=== PATIENT | female | born 1950 | race Caucasian/White ===

== ENCOUNTER → 2018-03-10 09:00 | Outpatient (CLI) | payer MEDICARE, SELFPAY ==
[2018-03-10 10:30] LABS: ALB/GLOB Ratio 0.7 RATIO (0.9-2.4); AST(SGOT) 46 U/L (15-37); Alanine Aminotransfer ALT/SGPT 37 U/L (13-56); Alkaline Phosphatase 62 U/L (45-117); Anion Gap 8 (5-15); BUN 19 mg/dL (7-18); BUN/Creat Ratio 20.7 RATIO (10-20); Calcium,Total 8.9 mg/dL (8.5-10.1); Chloride 106 mmol/L (98-107); Cholesterol 138 mg/dL (200); Creatinine, Serum 0.92 mg/dL (0.55-1.02); EST Glomerular Filtration Rate 64 mL/min (>60); Est Glom Filt Rate - Afr Amer 78 mL/min (>60); Globulin 4.1 g/dL (2.2-4.2); Glucose 110 mg/dL (74-106); High Density Lipoprotein 64 mg/dL; Potassium 4.3 mmol/L (3.5-5.1); Protein, Total 7.1 g/dL (6.4-8.2); Sodium Level 142 mmol/L (136-145); Triglycerides 182 mg/dL; Very Low Density Lipoprotein 36 mg/dL (5-40)
== END ==
PROVIDERS: Family Provider Family Medicine; PCP Family Medicine; Visit Provider Family Medicine
DX: E78.5 Hyperlipidemia, unspecified (principal); I10 Essential (primary) hypertension
CPT/HCPCS: 36415; 80053; 80061

== ENCOUNTER → 2018-03-29 14:42 | Outpatient (CLI) | payer MEDICARE, SELFPAY ==
--- NOTE | 2018-03-29 14:44 | BI_ITS ---
MAMMOGRAPHY - BILATERAL SCREENING REASON FOR EXAM: Female, 68 years old. Routine annual screening examination. PERTINENT HISTORY: Mother with breast cancer. TECHNIQUE: Digital bilateral breast chanda (3D mammographic acquisition) in the CC and MLO projections. 2-D mediolateral oblique (MLO) and craniocaudad (CC) views of both breasts were obtained. CAD: Full Field Digital Mammography with Computer Added Detection was performed. COMPARISON: Comparison is made with prior examination dated January 30, 2017. FINDINGS: Breast Composition: The breasts are almost entirely fatty. There are no dominant masses or suspicious calcifications. No other significant abnormalities are identified. There has been no significant change since the prior study. BI/SCREENING MAMM (CAD), BILAT IMPRESSION: Stable bilateral screening mammogram. Yearly follow-up mammogram recommended. (A) ASSESSMENT CATEGORY: BIRADS Category 1: Negative. A letter regarding these results will be sent to the patient by the facility within 30 days. Approximately 10% of breast cancers are not detected by mammography. A normal mammogram should not delay biopsy of a clinically suspicious abnormality. [id number] Electronically Signed: Bradly Puente MD at 15:45 EDT Tel [phone], Service support ,
== END ==
PROVIDERS: PCP Family Medicine; Visit Provider Family Medicine
DX: Z12.31 Encounter for screening mammogram for malignant neoplasm of breast (principal)
CPT/HCPCS: 77063; 77067

== ENCOUNTER 2018-11-01 14:00 | Outpatient (RCR) | payer MEDICARE, SELFPAY ==
[2018-09-14 13:01] VITALS: BMI 49.6
--- NOTE | 2018-10-11 16:45 | HP.OTEVAL ---
Patient's Visit Information VANI RIZZO is a 68 year old F, referred to Occupational Therapy by Anupam Lugo MD, with a diagnosis of lateral epicondylitis R elbow. Date of Evaluation: 10/10/18 Occupational Therapist: Pita Ortiz - Subjective Subjective: Pt seen for initial occupational therapy evaluation for lateral epicondilitis. Pt states has had pain for about one year R elbow with increased numbness/tingling and pain R hand. Pt also has diagnosis carpal tunnel syndrome R upper limb and PMR. Pt states had a cortisone shot about a week ago R elbow and it has started to help. Pt states has been wearing a cock up splint R wrist at night for sleeping. Pt independent with BADL tasks. Pt independent with simple meal prep tasks, spouse assist with IADLs as needed. Pt is R hand dominent. Reads for hobbies. - Pain R elbow 3 Pain Intensity Range: 1, 8 - Objective Objective/Observation: pain with movement R elbow and R hand, decreased AROM R elbow - ROM Elbow: R -25/85 L 0/115 - Strength Policy Services Representative: R 40#, L 52# Lateral Pinch: R 4#, L 8# Tripod Pinch: R 3#, L 6# Strength Comments: R UE MMT 3+/5 L UE 4-/5 - Edema Elbow: slight R elbow edema - Sensation Sensation Comments: numbness and tingling R hand has had for a long time, states going in for carpel tunnel testing nerve conduction test in December. 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 Goal:: Pt will demo increased R elbow extension by 25' to assist with ability to complete functional living tasks at ease by d/c from OT services. Goal:: Pt will demo no pain greater than 1/10 with movement of R elbow by d/c from OT services. Goal:: Pt will be educated on joint protection/energy conservation techniques of R elbow and wrist with good understanding and demo 100%x Goal:: Pt will be edcuated on R elbow HEP with good understanding and demo 100%x - Rehabilitation General Assessment: Pt demo decreased AROM R elbow with -25 degrees R elbow extension. Pt demo increase pain with movement and at rest with R elbow and decreased strength of R UE. Pt would benefit from direct occupational therapy services to increase R elbow ROM and strength, decrease pain R elbow and educate on joint protection, energy conservation techniques and HEP 1-2x/wk x 4-6 wks. Rehabilitation Potential: Good - Anticipated Interventions Anticipated Interventions: A/AAROM/PROM, Strengthening, Massage, Modalities, Orthoses, Joint Protection/Energy Conservation, ADL Training, Education re assistive Equipment, Education re Diagnosis, Education re Self Massage Techniques, Education re Correct Donning Tech,Care&Wearing Sched Comp Garments, Caregiver Training, Home Program - Visit Plan Frequency: 1-2x /Week Duration: 4-6 Weeks General Plan: decrease pain R elbow, increase strength R UE, increase AROM R elbow, educate on joint protection/energy conservation, educate on HEP TEXT: Thank you for the opportunity to evaluate your patient. For Medicare and Medicare HMO plans, please review the plan of care and approve it. It will need to be FAXED BACK to us at [phone] for Medicare purposes. Please let me know if there are questions or concerns regarding this plan of care. Physician Signature: Date:
--- NOTE | 2018-11-01 15:17 | HP.OTDCSUM ---
HP - OT D/C Summary It has been my pleasure to treat VANI RIZZO under orders from Anupam Lugo MD, for the diagnosis of lateral epicondylitis R elbow for a total of 3 visit(s). Please see the following information for a summary of their discharge status. 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 Goal:: Pt will demo increased R elbow extension by 25' to assist with ability to complete functional living tasks at ease by d/c from OT services. Goal:: Pt will demo no pain greater than 1/10 with movement of R elbow by d/c from OT services. Goal:: Pt will be educated on joint protection/energy conservation techniques of R elbow and wrist with good understanding and demo 100%x Goal:: Pt will be edcuated on R elbow HEP with good understanding and demo 100%x - Plan Plan: d/c OT services as of this date. See d/c for all details. - D/C Information Discharge Comments: Pt has made good progress w/ OT goals. Pt demo decreased pain with R elbow 1-2/10 with movement and rest. Pt has progressed with R elbow extension from -25 to -3. Pt has been edcuated on R elbow HEP and soft tissue mobility techniques to complete at home with good understanding and demo. Pt educated on joint protection and energy conservation techniques. Pt no longer requires skilled OT interventions, d/c OT services. If there are questions or concerns regarding this patient's occupational therapy, please fell free to call me at [phone]. Thank you for the referral of this patient. Sincerely, Pita Ortiz
== END 2018-11-01 19:00 | disposition home or self-care (01) ==
LOC: OT 14:00
PROVIDERS: Family Provider Family Medicine; PCP Family Medicine; Referring Provider Orthopaedic Surgery; Visit Provider Orthopaedic Surgery
DX: M77.11 Lateral epicondylitis, right elbow (principal)
CPT/HCPCS: 97140; 97165; 97166; 97530

== ENCOUNTER → 2018-12-18 07:15 | Outpatient (CLI) | payer MEDICARE, SELFPAY ==
[2018-09-14 13:01] VITALS: BMI 49.6
--- NOTE | 2018-12-18 10:51 | NEURO ---
NCS and/or EMG Patient Report Ordering Doctor: Anupam Lugo DATE OF SERVICE: 12/18/18 This is a right upper extremity sensory and motor nerve conduction study performed on this 68-year-old female with numbness weakness and tingling in the right hand. Patient is healthy otherwise. Right upper extremity nerve conduction study demonstrates prolongation into the severe range of the median motor and sensory distal latency with preservation of the ulnar motor and sensory and radial sensory responses. Eating F-wave latency is also prolonged compared to the ulnar F-wave latency. Impression this is an abnormal nerve conduction study of the right upper extremity consistent with severe carpal tunnel syndrome at the right wrist.
== END ==
PROVIDERS: Family Provider Family Medicine; PCP Family Medicine; Referring Provider Orthopaedic Surgery; Visit Provider Orthopaedic Surgery
DX: G56.01 Carpal tunnel syndrome, right upper limb (principal)
CPT/HCPCS: 95909

== ENCOUNTER 2019-01-25 12:11 | Day surgery (SDC) | payer MEDICARE, SELFPAY ==
[2018-09-14 13:01] VITALS: BMI 49.6
[2019-01-25 12:40] VITALS: BP 163/83; PULSE 84; RESP 17; TEMP 36.4; O2SAT 100; BMI 46.8
[2019-01-25 14:41] VITALS: BP 148/71; BP 163/83; PULSE 88; RESP 16; TEMP 36; O2SAT 92
[2019-01-25 14:45] VITALS: BP 141/66; BP 163/83; PULSE 88; RESP 16; O2SAT 93
[2019-01-25 14:50] VITALS: BP 133/69; BP 163/83; PULSE 85; RESP 16; O2SAT 95
--- NOTE | 2019-01-25 14:52 | PCM.OP.PRO ---
Procedure Report Date of Procedure: 01/25/19 Preoperative diagnosis: Right Carpal tunnel syndrome Postoperative diagnosis: Same Title of operation: Open carpal tunnel release Surgeon: Dr. Anupam Lugo Anesthesia: Local w MAC Special medications: Oral clindamycin Indications for surgery: Patient seen and evaluated in the office. Diagnosed with carpal tunnel syndrome. They have failed adequate nonoperative treatment. Due to persistent symptoms they wish to proceed with carpal tunnel release surgery appropriate informed consent was obtained and signed. Details of procedure: Patient was taken to the OR and transferred to the OR table. Appropriate timeouts were performed. Well-padded tourniquet was applied to the operative upper extremity proximally. Area was prepped with alcohol. Local anesthetic was administered using 9 cc of 1% lidocaine plain. Operative extremity was prepped padded and draped in usual orthopedic sterile fashion for the procedure. Limb was exsanguinated. Tourniquet applied to 250 mmHg. Three centimeter incision was made over the palm. Carefully taken through skin, subcutaneous tissue, down onto the transverse carpal ligament. Transverse carpal ligament was opened at the midportion with a knife. Elevator was carefully placed underneath the transverse carpal ligament in a distal direction. I dissected down onto that with a knife. Elevator was then placed in a proximal direction, again directly underneath the transverse carpal ligament. I dissected down on that with a knife. Scissors were used at the proximal extent placed under direct visualization. This fully released the proximal extent of the transverse carpal ligament. At this point my small finger was placed proximally and distally to assure complete release of the transverse carpal ligament over the median nerve. FPL tendon was noted. No significant abnormalities were noted at the region of the carpal canal. Tourniquet was let down. Bleeding controlled with the Bovie. Wound thoroughly irrigated. No undue bleeding noted. Skin edges were reapproximated with a 4-0 nylon. Sterile bandage was applied. Patient was awoken from the anesthetic. Transferred to the room bed. To recovery room in satisfactory condition. Patient will be discharged home. Ice and elevation recommended. Pain medication as needed. Follow-up in the office next week as scheduled. This note was generated with [employer] dictation software. It may contain incorrect words, spelling, and punctuation that were not noted in checking the note before signing.
[2019-01-25 14:55] VITALS: BP 140/70; BP 163/83; PULSE 85; RESP 16; TEMP 36.3; O2SAT 97
[2019-01-25 15:38] VITALS: BP 163/83
== END 2019-01-25 15:39 | disposition home or self-care (01) ==
LOC: SDC 12:13 → AC 12:14
PROVIDERS: Family Provider Family Medicine; PCP Family Medicine; Referring Provider Orthopaedic Surgery; Visit Provider Orthopaedic Surgery
PROC: (CPT 64721; principal; 2019-01-25 13:45)
DX: G56.01 Carpal tunnel syndrome, right upper limb (principal); E66.9 Obesity, unspecified; Z88.0 Allergy status to penicillin; Z79.891 Long term (current) use of opiate analgesic; M19.90 Unspecified osteoarthritis, unspecified site; I10 Essential (primary) hypertension; E78.00 Pure hypercholesterolemia, unspecified; Z87.891 Personal history of nicotine dependence; Z79.899 Other long term (current) drug therapy; Z85.43 Personal history of malignant neoplasm of ovary
CPT/HCPCS: 64721; J7120; J2405

== ENCOUNTER → 2019-03-12 14:49 | Outpatient (CLI) | payer MEDICARE, SELFPAY ==
[2019-03-12 13:30] VITALS: BMI 46.8
[2019-03-12 16:37] LABS: Erythrocyte Sedimentation Rate 57 mm/hr (0-30)
[2019-03-12 16:52] LABS: ALB/GLOB Ratio 0.7 RATIO (0.9-2.4); AST(SGOT) 25 U/L (15-37); Alanine Aminotransfer ALT/SGPT 30 U/L (13-56); Albumin, Serum 3.2 g/dL (3.2-5.0); Alkaline Phosphatase 83 U/L (45-117); Anion Gap 6 (5-15); BUN 18 mg/dL (7-18); BUN/Creat Ratio 19.9 RATIO (10-20); Calcium,Total 9.2 mg/dL (8.5-10.1); Chloride 107 mmol/L (98-107); Cholesterol 154 mg/dL (200); EST Glomerular Filtration Rate 65 mL/min (>60); Est Glom Filt Rate - Afr Amer 79 mL/min (>60); Globulin 4.3 g/dL (2.2-4.2); Glucose 143 mg/dL (74-106); High Density Lipoprotein 58 mg/dL; Protein, Total 7.5 g/dL (6.4-8.2); Sodium Level 142 mmol/L (136-145); Triglycerides 182 mg/dL; Very Low Density Lipoprotein 36 mg/dL (5-40)
== END ==
PROVIDERS: Family Provider Family Medicine; PCP Family Medicine; Referring Provider Family Medicine; Visit Provider Family Medicine
DX: E78.5 Hyperlipidemia, unspecified (principal); M35.3 Polymyalgia rheumatica
CPT/HCPCS: 36415; 80053; 80061; 85652

== ENCOUNTER → 2019-04-01 14:40 | Outpatient (CLI) | payer MEDICARE, SELFPAY ==
[2019-03-12 13:30] VITALS: BMI 46.8
--- NOTE | 2019-04-01 14:42 | BI_ITS ---
MAMMOGRAPHY - BILATERAL SCREENING REASON FOR EXAM: Female, 69 years old. Routine annual screening examination. PERTINENT HISTORY: Mother with breast cancer. TECHNIQUE: Digital bilateral breast claude (3D mammographic acquisition) in the CC and MLO projections. 2-D mediolateral oblique (MLO) and craniocaudad (CC) views of both breasts were obtained. CAD: Full Field Digital Mammography with Computer Added Detection was performed. COMPARISON: Comparison is made with prior study dated March 29, 2018 and January 30, 2017. FINDINGS: Breast Composition: The breasts are almost entirely fatty. There are no dominant masses or suspicious calcifications. No other significant abnormalities are identified. There has been no significant change since the prior study. BI/SCREEN MAMM (CAD) W/CLAUDE BILAT IMPRESSION: Stable bilateral screening mammogram. Yearly follow-up mammogram recommended. (A) ASSESSMENT CATEGORY: BIRADS Category 1: Negative. A letter regarding these results will be sent to the patient by the facility within 30 days. Approximately 10% of breast cancers are not detected by mammography. A normal mammogram should not delay biopsy of a clinically suspicious abnormality. [id number] Electronically Signed: Bradly Puente, at 8:20 EDT , Service support ,
== END ==
PROVIDERS: Family Provider Family Medicine; PCP Family Medicine; Referring Provider Family Medicine; Visit Provider Family Medicine
DX: Z12.31 Encounter for screening mammogram for malignant neoplasm of breast (principal); Z80.3 Family history of malignant neoplasm of breast
CPT/HCPCS: 77063; 77067

== ENCOUNTER → 2019-06-11 08:45 | Outpatient (CLI) | payer MEDICARE, SELFPAY ==
[2019-04-17 15:03] VITALS: BMI 46.8
[2019-06-11 09:50] LABS: Creatinine, Serum 1.01 mg/dL (0.55-1.02); EST Glomerular Filtration Rate 57 mL/min (>60); Est Glom Filt Rate - Afr Amer 69 mL/min (>60)
== END ==
PROVIDERS: Family Provider Family Medicine; PCP Family Medicine; Referring Provider Orthopaedic Surgery; Visit Provider Orthopaedic Surgery
DX: N28.9 Disorder of kidney and ureter, unspecified (principal)
CPT/HCPCS: 36415; 82565

== ENCOUNTER → 2019-09-10 13:48 | Outpatient (CLI) | payer MEDICARE, SELFPAY ==
[2019-09-10 13:09] VITALS: BMI 46.8
[2019-09-10 15:06] LABS: Erythrocyte Sedimentation Rate 22 mm/hr (0-30)
[2019-09-10 15:19] LABS: ALB/GLOB Ratio 0.8 RATIO (0.9-2.4); AST(SGOT) 26 U/L (15-37); Alanine Aminotransfer ALT/SGPT 37 U/L (13-56); Albumin, Serum 3.4 g/dL (3.2-5.0); Alkaline Phosphatase 78 U/L (45-117); Anion Gap 5 (5-15); BUN 17 mg/dL (7-18); BUN/Creat Ratio 18.7 RATIO (10-20); Calcium,Total 9.8 mg/dL (8.5-10.1); Chloride 103 mmol/L (98-107); Cholesterol 137 mg/dL (200); Creatinine, Serum 0.91 mg/dL (0.55-1.02); EST Glomerular Filtration Rate 65 mL/min (>60); Est Glom Filt Rate - Afr Amer 78 mL/min (>60); Globulin 4.1 g/dL (2.2-4.2); Glucose 148 mg/dL (74-106); High Density Lipoprotein 58 mg/dL; Potassium 4.5 mmol/L (3.5-5.1); Protein, Total 7.5 g/dL (6.4-8.2); Sodium Level 140 mmol/L (136-145); Triglycerides 174 mg/dL; Very Low Density Lipoprotein 35 mg/dL (5-40)
== END ==
PROVIDERS: PCP Family Medicine; Referring Provider Family Medicine; Visit Provider Family Medicine
DX: M35.3 Polymyalgia rheumatica (principal); E78.5 Hyperlipidemia, unspecified
CPT/HCPCS: 36415; 80053; 80061; 85652

== ENCOUNTER → 2020-03-18 14:06 | Outpatient (CLI) | payer MEDICARE, SELFPAY ==
[2020-03-18 13:15] VITALS: BMI 46.8
[2020-03-18 15:42] LABS: ALB/GLOB Ratio 0.9 RATIO (0.9-2.4); AST(SGOT) 26 U/L (15-37); Alanine Aminotransfer ALT/SGPT 31 U/L (13-56); Albumin, Serum 3.6 g/dL (3.2-5.0); Alkaline Phosphatase 69 U/L (45-117); Anion Gap 5 (5-15); BUN 14 mg/dL (7-18); BUN/Creat Ratio 13.6 RATIO (10-20); Calcium,Total 9.6 mg/dL (8.5-10.1); Chloride 104 mmol/L (98-107); Creatinine, Serum 1.03 mg/dL (0.55-1.02); EST Glomerular Filtration Rate 56 mL/min (>60); Est Glom Filt Rate - Afr Amer 68 mL/min (>60); Globulin 3.8 g/dL (2.2-4.2); Glucose 155 mg/dL (74-106); Potassium 4.5 mmol/L (3.5-5.1); Protein, Total 7.4 g/dL (6.4-8.2); Sodium Level 140 mmol/L (136-145)
[2020-03-18 15:44] LABS: Hemoglobin A1c 7.2 % (3.8-5.6)
== END ==
PROVIDERS: PCP Family Medicine; Referring Provider Family Medicine; Visit Provider Family Medicine
DX: M35.3 Polymyalgia rheumatica (principal); R73.9 Hyperglycemia, unspecified
CPT/HCPCS: 36415; 80053; 83036

== ENCOUNTER → 2020-04-02 14:33 | Outpatient (CLI) | payer MEDICARE, SELFPAY ==
[2019-09-10 13:09] VITALS: BMI 46.8
[2020-03-18 13:15] VITALS: BMI 46.8
--- NOTE | 2020-04-02 14:34 | BI_ITS ---
MAMMOGRAPHY - BILATERAL SCREENING REASON FOR EXAM: Female, 70 years old. Routine annual screening examination. PERTINENT HISTORY: Mother with breast cancer. TECHNIQUE: Digital bilateral breast claude (3D mammographic acquisition) in the CC and MLO projections. 2-D mediolateral oblique (MLO) and craniocaudad (CC) views of both breasts were obtained. CAD: Full Field Digital Mammography with Computer Added Detection was performed. COMPARISON: Comparison is made with prior examination dated 04/01/2019 and 03/29/2018. FINDINGS: Breast Composition: The breasts are almost entirely fatty. There are no dominant masses or suspicious calcifications. No other significant abnormalities are identified. There has been no significant change since the prior study. BI/SCREEN MAMM (CAD) W/CLAUDE BILAT IMPRESSION: Stable bilateral screening mammogram. Yearly follow-up mammogram recommended. (A) ASSESSMENT CATEGORY: BIRADS Category 1: Negative. A letter regarding these results will be sent to the patient by the facility within 30 days. Approximately 10% of breast cancers are not detected by mammography. A normal mammogram should not delay biopsy of a clinically suspicious abnormality. [id number] Electronically Signed: Bradly Puente, at 15:41 EDT , Service support ,
== END ==
PROVIDERS: PCP Family Medicine; Referring Provider Family Medicine; Visit Provider Family Medicine
DX: Z12.31 Encounter for screening mammogram for malignant neoplasm of breast (principal)
CPT/HCPCS: 77063; 77067

== ENCOUNTER 2020-04-08 14:30 | Outpatient (RCR) | payer MEDICARE, SELFPAY ==
[2020-03-18 13:15] VITALS: BMI 46.8
== END 2020-04-08 23:59 ==
LOC: DC 14:30
PROVIDERS: PCP Family Medicine; Visit Provider Family Medicine
DX: Z71.3 Dietary counseling and surveillance (principal); E11.9 Type 2 diabetes mellitus without complications
CPT/HCPCS: 97802; G0108

== ENCOUNTER 2020-04-30 14:00 | Outpatient (RCR) | payer MEDICARE, SELFPAY ==
[2020-03-18 13:15] VITALS: BMI 46.8
[2020-04-21 14:59] VITALS: BMI 46.0
== END 2020-05-09 23:59 ==
LOC: DC 14:00
PROVIDERS: PCP Family Medicine; Visit Provider Family Medicine
DX: Z71.3 Dietary counseling and surveillance (principal); E11.9 Type 2 diabetes mellitus without complications
CPT/HCPCS: 97803; G0108

== ENCOUNTER 2020-06-01 13:56 | Outpatient (RCR) | payer MEDICARE, SELFPAY ==
[2020-04-21 14:59] VITALS: BMI 46.0
== END 2020-06-08 23:59 ==
LOC: DC 13:56
PROVIDERS: PCP Family Medicine; Visit Provider Family Medicine
DX: Z71.3 Dietary counseling and surveillance (principal); E11.9 Type 2 diabetes mellitus without complications
CPT/HCPCS: 97803

== ENCOUNTER 2020-09-10 06:44 | Outpatient (RCR) | payer MEDICARE, SELFPAY ==
[2020-06-23 15:21] VITALS: BMI 42.0
[2020-09-10] MEDS: COVID-19 VACC, MRNA(PFIZER)/PF 30 MCG/0.3 ML SYRINGE IM (14:08)
[2020-10-01] MEDS: COVID-19 VACC, MRNA(PFIZER)/PF 30 MCG/0.3 ML SYRINGE IM (13:51)
== END 2020-12-15 23:59 ==
LOC: IMMUN 06:44
PROVIDERS: PCP Family Medicine; Referring Provider Family Medicine; Visit Provider Family Medicine
DX: Z23 Encounter for immunization (principal)
CPT/HCPCS: 0001A; 0002A; 91300

== ENCOUNTER → 2020-12-17 14:56 | Outpatient (CLI) | payer MEDICARE, SELFPAY ==
[2020-12-17 14:02] VITALS: BMI 39.6
[2020-12-17 16:52] LABS: Absolute Lymphocyte Count 1.85 X10^3/uL (0.83-4.51); Absolute Neutrophil Count 5.5 X10^3/uL (2.0-7.7); Basophil# 0.04 X10^3/uL; Basophil% 0.5 % (0-1); Eosinophil# 0.16 X10^3/uL; Eosinophils% 1.9 % (0-5); Hematocrit 46.1 % (37-47); Hemoglobin 14.7 g/dL (12.0-15.0); Lymphocyte # 1.85 X10^3/ul (0.83-4.51); Lymphocyte % 22.4 % (19-41); Mean Corp Hgb Conc 31.9 g/dL (32-36); Mean Corpuscular Hgb 30.6 pg (27.0-32.0); Mean Corpuscular Volume 95.8 fL (81-99); Mean Platelet Vol. 11.6 fl (6.2-12.0); Monocyte# 0.69 X10^3/uL; Monocyte% 8.4 % (0-10); NRBC Flagged by Analyzer 0 % (0-5); Neutrophil % 66.6 % (47-70); Platelet Count 226 K/mm3 (150-450); RBC Distribution Width CV 14.3 % (11.6-14.6); RBC Distribution Width SD 50.2 fl (35.1-43.9); Red Blood Count 4.81 M/mm3 (4.2-5.4); White Blood Count 8.3 K/mm3 (4.4-11.0)
[2020-12-17 17:02] LABS: Anion Gap 6 (5-15); BUN 21 mg/dL (7-18); BUN/Creat Ratio 26.3 RATIO (10-20); Calcium,Total 9.8 mg/dL (8.5-10.1); Chloride 107 mmol/L (98-107); EST Glomerular Filtration Rate 75 mL/min (>60); Est Glom Filt Rate - Afr Amer 91 mL/min (>60); Glucose 104 mg/dL (74-106); Potassium 4.2 mmol/L (3.5-5.1); Sodium Level 142 mmol/L (136-145)
== END ==
PROVIDERS: PCP Family Medicine; Referring Provider Physician Assistant; Visit Provider Physician Assistant
DX: K92.1 Melena (principal); N64.4 Mastodynia
CPT/HCPCS: 36415; 80048; 85025

== ENCOUNTER 2020-12-23 10:22 | Emergency (ER) | payer MEDICARE, SELFPAY ==
[2020-12-17 14:02] VITALS: BMI 39.6
[2020-12-23 10:23] VITALS: BP 164/83; PULSE 76; RESP 16; TEMP 36.1; O2SAT 100; BMI 37.0
[2020-12-23] MEDS: Morphine 4 MG/ML Syringe IM ×2 (10:53→11:57)
--- NOTE | 2020-12-23 11:02 | ED.VIS.LOWEX ---
HPI History of Present Illness Chief Complaint: Lower Extremity Injury Informant: patient Onset/Context/Timing Onset: Yesterday Context: Gradual Onset Timing: Continuous Quality of Pain: Aching and Burning Location: Left knee Current Severity: Severe Maximum Severity: Severe Narrative Narrative: Patient presents with left knee pain that became worse yesterday. Patient states she knows she needs a total knee replacement on her left knee. Patient states yesterday her pain became more severe. Patient took her tramadol yesterday evening with no improvement. Patient did not take any tramadol today. Patient describes her pain as aching and burning. Patient states her pain is worse with ambulation. Patient denies any trauma or injury. Patient denies any paresthesias or weakness. [facility] Medical History (Updated 12/23/20 @ 12:[address] Manpreet Giron, ) Arthritis Back pain Cataracts, bilateral Difficulty balancing Hemorrhoids History of ovarian cancer History of polycystic ovaries Hyperlipemia Hypertension Knee pain Polymyalgia rheumatica Sciatica Seasonal allergies Shoulder pain Home Medications calcium carb and lactate 200 mg-vitamin D3 6.25 mcg (250 unit) tablet 2 tab PO HS 03/06/18 [History Last Taken Unknown] cetirizine 10 mg capsule 10 mg PO DAILY PRN cap 09/10/19 [History Last Taken Unknown] meloxicam 15 mg tablet 15 mg PO DAILY #90 tab 02/24/20 [Rx Last Taken Unknown] losartan 100 mg tablet 100 mg PO DAILY #90 tab 06/23/20 [Rx Last Taken Unknown] lactobacillus combination no.9 4 billion cell capsule 4,000 mmu cells PO DAILY 09/16/20 [History Last Taken Unknown] rosuvastatin 5 mg tablet 5 mg PO DAILY #90 tab 09/16/20 [Rx Last Taken Unknown] prednisone 1 mg tablet 2 mg PO DAILY #180 tab 09/29/20 [Rx Last Taken Unknown] prednisone 2.5 mg tablet 2.5 mg PO BID #100 tab 11/11/20 [Rx Last Taken Unknown] tramadol 50 mg tablet 50 mg PO BID PRN #60 tab 11/30/20 [Rx Last Taken Unknown] nystatin 100,000 unit/gram topical powder 1 applic TOPICAL TID PRN #30 g 12/17/20 [Rx Last Taken Unknown] potassium chloride 10 mEq tablet,extended release 20 meq PO DAILY #90 tab 12/17/20 [Rx Last Taken Unknown] Allergy/AdvReac Type Severity Reaction Status Date / Time lisinopril Allergy Unknown Verified 12/23/20 10:25 Penicillins [PCN] Allergy Unknown Verified 12/23/20 10:25 Family History Father Alcoholism Hypertension Heart disease Mother Hypertension Asthma Breast cancer Cancer Diabetes Brother Hypertension Heart disease Sister Heart disease Hypertension Surgical History History of carpal tunnel release History of carpal tunnel surgery of right wrist History of hysterectomy History of knee replacement History of tonsillectomy Social History Smoking Status: Former smoker Tobacco: How many years used: 10 how long ago did patient quit smokin alcohol intake: never substance use type: does not use what type of physical activity do you participate in: none ROS ROS ED Constitutional Constitutional ED: Denies chills or fever(s) Eyes Eyes: Denies blurry vision or change in vision ENT ENT ED: Denies rhinorrhea or sore throat Cardiovascular Cardiovascular: Denies chest pain or palpitations Respiratory/Chest Respiratory/Chest: Denies cough or dyspnea Gastrointestinal Gastrointestinal: Denies nausea or vomiting Genitourinary Genitourinary ED: Denies dysuria or hematuria Musculoskeletal Musculoskeletal: Denies back pain or neck pain Integumentary Denies abscess or rash Neurologic Neurologic: Denies headache(s) or weakness Allergic/Immunologic Allergic/Immunologic ED: Denies mouth swelling or urticaria EXAM Physical Exam Const Vital Signs: 12/23/20 10:23 Temperature 96.9 F L Temperature Source Temporal Pulse Rate 76 Respiratory Rate 16 Blood Pressure 164/83 H Blood Pressure Mean 110 Pulse Ox 100 Oxygen Delivery Method Room Air Positive well nourished, well developed and obese General Appearance ED: well developed Nutritional Appearance: obese HEENT Reports moist mucous membranes Extremity Extremity Narrative: There is diffuse tenderness over the left knee. There is no effusion. There is no bony crepitance or step-off. There is no edema or ecchymosis. Range of motion was limited to approximately 30 degrees of flexion secondary to pain. There is no laxity appreciated. Varus and valgus stress test were negative. Shonda's test was negative. There is no calf tenderness. There is no tenderness over the tibia or fibula. Neuro oriented x3, CN's II-XII intact bilaterally, moves all extremities and no sensory deficits noted Sensorium / Orientation: alert Motor Exam: strength 5/5 throughout Psych mental status grossly normal MDM MDM MDM Narrative Medical decision making narrative: Patient was given an injection of morphine here. Patient had minimal improvement with this. Patient states she was having difficulty ambulating still. Patient was given a repeat dose of morphine. Patient feeling better after this. Patient wants to go home. Patient was instructed to continue using her tramadol as previously prescribed. Patient was instructed to follow-up with her orthopedic surgeon in 5 to 7 days. Patient understood and was agreeable with the plan. All questions were answered. Discharge Plan Triage Chief Complaint: Lower Extremity Injury ED Provider: Manpreet Giron Dx/Rx/DC Orders Clinical Impression: Degenerative joint disease of knee Instructions: ED Osteoarthritis Prescriptions: No Action calcium carbonat and lactate 200 mg calcium-vitamin D3 250 unit tablet 200 mg calcium -250 unit tablet 2 tab PO HS RF: 0 Zyrtec 10 mg capsule 10 mg PO DAILY PRN (Reason: allergies) RF: 0 Adult 50 Plus Probiotic 4 billion cell capsule 4,000 mmu cells PO DAILY RF: 0 rosuvastatin [Crestor] 5 mg tablet 5 mg PO DAILY Qty: 90 RF: 1 losartan 100 mg tablet 100 mg PO DAILY Qty: 90 RF: 2 tramadol 50 mg tablet 50 mg PO BID PRN (Reason: pain) Qty: 60 RF: 0 nystatin 100,000 unit/gram powder 1 applic topical TID PRN (Reason: rash) Qty: 30 RF: 0 potassium chloride 10 mEq tablet extended release 20 meq PO DAILY Qty: 90 RF: 1 meloxicam 15 mg tablet 15 mg PO DAILY Qty: 90 RF: 1 prednisone 1 mg tablet 2 mg PO DAILY Qty: 180 RF: 1 prednisone 2.5 mg tablet 2.5 mg PO BID Qty: 100 RF: 1 Primary Care Provider: Keith Alvarado Referrals: Keith Alvarado, [Primary Care Provider] - 1-2 Weeks Anupam Lugo MD [STAFF PHYSICIAN] - 5-7 Days Disposition Disposition: Home, self care
== END 2020-12-23 13:08 | disposition home or self-care (01) ==
PROVIDERS: Emergency Provider Emergency Medicine; PCP Family Medicine
DX: M17.12 Unilateral primary osteoarthritis, left knee (principal); E66.9 Obesity, unspecified; E78.5 Hyperlipidemia, unspecified; I10 Essential (primary) hypertension; Z87.891 Personal history of nicotine dependence; Z85.43 Personal history of malignant neoplasm of ovary; Z79.899 Other long term (current) drug therapy
CPT/HCPCS: 96372; 99282

== ENCOUNTER → 2020-12-28 14:17 | Outpatient (CLI) | payer MEDICARE, SELFPAY ==
[2020-12-23 10:23] VITALS: BMI 37.0
--- NOTE | 2020-12-28 15:08 | BI_ITS ---
MAMMOGRAPHY - BILATERAL DIAGNOSTIC REASON FOR EXAM: Female, 70 years old. Annual screening. PERTINENT HISTORY: Mother with breast cancer. TECHNIQUE: Digital examination. Mediolateral oblique (MLO) and craniocaudad (CC) views of both breasts were obtained. CAD: CAD was performed on this study. 04/02/2020, COMPARISON: 04/01/2019. FINDINGS: Breast Composition: The breasts are almost entirely fatty. Stable benign calcifications bilaterally. There are no dominant masses or suspicious calcifications. No other significant abnormalities are identified. BI/DIAG MAMM W/CAD, BILAT IMPRESSION: Stable bilateral diagnostic mammogram. One year follow-up recommended. ASSESSMENT CATEGORY: BIRADS Category 2: Benign. A letter regarding these results will be sent to the patient by the facility within 30 days. FOLLOW UP RECOMMENDATION: Yearly follow up mammogram recommended. (A) Approximately 10% of breast cancers are not detected by mammography. A normal mammogram should not delay biopsy of a clinically suspicious abnormality. Electronically Signed: Darell Cornelius MD at 14:47 EDT , Service support ,
== END ==
PROVIDERS: PCP Family Medicine; Referring Provider Physician Assistant; Visit Provider Physician Assistant
DX: N64.4 Mastodynia (principal)
CPT/HCPCS: 77062; 77066; G0279

== ENCOUNTER → 2021-03-22 15:34 | Outpatient (CLI) | payer MEDICARE, SELFPAY ==
--- NOTE | 2021-03-22 | COLBX_PTH ---
PATIENT: VANI RIZZO LOC: [facility] U#:[id number] AGE/SX: 75/F ROOM: RE03/22/[address]: Dr. Jhony Nguyen MD : 1950 BED: DIS: SPEC #: [id number] RECD: 03/22/21 15:14 STATUS: AMENA JAIMEJudy #: [id number] JANETH: 03/22/21 00:[address]: Jhony Nguyen DEPT: SURGICAL PATHOLOGY RECD BY: Slava Moore ENTERED: 03/23/21 12:05 SP TYPE: COLON BX LA DR: Dr. Keith Alvarado, [facility] Tissues: Sigmoid colon biopsy Procedures: Surgery Specimen Level IV HEADER OPERATION: Colonoscopy PRE-OP DIAGNOSIS: Rectal bleeding; rule out adenoma TISSUE SUBMITTED: Distal sigmoid polyp at 10 cm MICROSCOPIC DIAGNOSIS Distal sigmoid polyp at 10 cm, biopsy: Tubular adenoma. JANET:justa 03/24/2021 MICROSCOPIC DESCRIPTION Slides are reviewed. GROSS DESCRIPTION Received in fixative is one container labeled with the patient's name and designated distal sigmoid polyp. The specimen consists of one irregular fragment of light bhatia soft tissue that measures 0.7 x 0.6 x 0.5 cm. The specimen is sectioned and totally submitted in one cassette. / AM:justa 03/23/2021 TC:1 CPT: 73860
== END ==
PROVIDERS: PCP Family Medicine; Visit Provider Internal Medicine Gastroenterology
DX: K62.5 Hemorrhage of anus and rectum (principal)
CPT/HCPCS: 88305

== ENCOUNTER → 2021-04-15 15:55 | Outpatient (CLI) | payer MEDICARE, SELFPAY ==
--- NOTE | 2021-04-15 15:58 | EKG12_ITS ---
Test Reason : PRE-OP Blood Pressure : / mmHG Vent. Rate : 070 BPM Atrial Rate : 070 BPM P-R Int : 154 ms QRS Dur : 086 ms QT Int : 388 ms P-R-T Axes : 071 -09 030 degrees QTc Int : 419 ms Normal sinus rhythm Normal ECG Confirmed by ROWDY KING, [place] ([id number]), editor in chief newspaper AN CHAIDEZ ([id number]) on 04/19/2021 10:54:30 AM Referred By: Anupam Lugo Confirmed By:NADIA RENO MD
--- NOTE | 2021-04-15 16:20 | RAD_ITS ---
HISTORY: PREOP EXAMINATION/TECHNIQUE: XR Chest 2 Views COMPARISON: None FINDINGS: LINES/DEVICES: None. LUNGS: No overt pulmonary edema. No focal airspace consolidation. Mildly elevated right hemidiaphragm with mild right basilar linear opacities. Small benign granulomatous calcification left lower lung. No pleural effusion. No pneumothorax detected. MEDIASTINUM AND CARDIOVASCULAR STRUCTURES: Heart normal size. Atherosclerotic calcifications along the aorta. BONES AND SOFT TISSUES: Skeletal degenerative changes. RAD/Chest PA and Lateral IMPRESSION: Mild right basilar linear scarring versus atelectasis. Otherwise, no acute pulmonary airspace disease. at 0737 Reported and signed by: Geraldo Knight MD Electronically Signed: Geraldo Knight MD at 7:36 EDT Tel , Service support ,
== END ==
PROVIDERS: PCP Family Medicine; Referring Provider Orthopaedic Surgery; Visit Provider Orthopaedic Surgery
DX: Z01.810 Encounter for preprocedural cardiovascular examination (principal)
CPT/HCPCS: 71046; 93005

== ENCOUNTER → 2021-07-05 15:53 | Outpatient (CLI) | payer MEDICARE, SELFPAY ==
--- NOTE | 2021-07-05 15:55 | VDLE_ITS ---
Reason For Study: PAIN Procedure LEFT This is a venous duplex using B-mode, color GSV is normal. flow and spectral Doppler. CFV is compressible, spontaneous, phasic, Exam performed in department. competent, and demonstrates normal A preliminary report was called and/or faxed augmentation. to RIP TRAN. FV is compressible, spontaneous, phasic, competent and demonstrates normal augmentation. POP V is compressible, spontaneous, phasic, competent and demonstrates normal augmentation. T/P Trunk is compressible. PTV is compressible. LT PerV is compressible. VL/Venous Duplex US, Unilateral Interpretation Summary There is no evidence of left lower extremity deep vein thrombosis. Left great s aphenous vein appears patent and compressible segmentally. Ordering Physician: Patrizia Barajas Referring Physician: OTF KUHN Performed By: Maria De Jesus Cesar, MODESTA, RVT
== END ==
PROVIDERS: PCP Family Medicine; Referring Provider Physician Assistant Surgical; Visit Provider Physician Assistant Surgical
DX: M79.605 Pain in left leg (principal)
CPT/HCPCS: 93971

== ENCOUNTER 2021-09-22 13:33 | Outpatient (CLI) | payer MEDICARE, SELFPAY ==
[2021-09-22 15:36] LABS: ALB/GLOB Ratio 0.9 RATIO (0.9-2.4); AST(SGOT) 16 U/L (15-37); Alanine Aminotransfer ALT/SGPT 22 U/L (13-56); Albumin, Serum 3.6 g/dL (3.2-5.0); Alkaline Phosphatase 93 U/L (45-117); Anion Gap 6 (5-15); BUN 23 mg/dL (7-18); BUN/Creat Ratio 27.1 RATIO (10-20); Calcium,Total 9.6 mg/dL (8.5-10.1); Chloride 108 mmol/L (98-107); Cholesterol 134 mg/dL (200); Creatinine, Serum 0.85 mg/dL (0.55-1.02); EST Glomerular Filtration Rate 70 mL/min (>60); Est Glom Filt Rate - Afr Amer 84 mL/min (>60); Globulin 4.1 g/dL (2.2-4.2); Glucose 92 mg/dL (74-106); High Density Lipoprotein 71 mg/dL; Potassium 4.4 mmol/L (3.5-5.1); Protein, Total 7.7 g/dL (6.4-8.2); Sodium Level 143 mmol/L (136-145); Triglycerides 117 mg/dL; Very Low Density Lipoprotein 23 mg/dL (5-40)
== END 2021-09-22 23:59 | disposition home or self-care (01) ==
LOC: BIMLAB 13:34
PROVIDERS: PCP Family Medicine; Visit Provider Family Medicine
DX: I10 Essential (primary) hypertension (principal)
CPT/HCPCS: 36415; 80053; 80061

== ENCOUNTER → 2022-02-02 | Outpatient (CLI) | payer MEDICARE, SELFPAY ==
[2022-02-02 15:37] LABS: Creatinine, Serum 0.79 mg/dL (0.55-1.02); EST Glomerular Filtration Rate 75 mL/min (>60); Est Glom Filt Rate - Afr Amer 91 mL/min (>60)
== END | disposition home or self-care (01) ==
LOC: BIMLAB 14:25
PROVIDERS: PCP Family Medicine; Referring Provider Orthopaedic Surgery; Visit Provider Orthopaedic Surgery
DX: M77.11 Lateral epicondylitis, right elbow (principal); N28.9 Disorder of kidney and ureter, unspecified
CPT/HCPCS: 36415; 82565

== ENCOUNTER → 2022-02-10 | Outpatient (CLI) | payer MEDICARE, SELFPAY ==
--- NOTE | 2022-02-10 13:29 | BI_ITS ---
MAMMOGRAPHY - BILATERAL SCREENING 3-D TOMOSYNTHESIS REASON FOR EXAM: Female, 72 years old. Routine screening PERTINENT HISTORY: Mother with breast cancer.. TECHNIQUE: 2-D mammograms and 3-D Tomosynthesis of the breast (s) were performed. CAD was performed. COMPARISON: 04/02/2020 FINDINGS: The breast composition is almost entirely fat. Scattered benign calcifications are seen. No dense spiculated masses or suspicious microcalcifications are identified. No architectural distortion is identified. There is no skin thickening or retraction. There has been no significant change since the prior study. BI/SCRN MAMM (CAD)W/CLAUDE BILAT IMPRESSION: No mammographic signs of malignancy. Routine yearly mammograms recommended. ASSESSMENT CATEGORY: BIRADS Category 1: Negative. A letter regarding these results will be sent to the patient by the facility within 30 days. FOLLOW UP RECOMMENDATION: Yearly follow up mammogram recommended. (A) Approximately 10% of breast cancers are not detected by mammography. A normal mammogram should not delay biopsy of a clinically suspicious abnormality. Electronically Signed: Luis Ruiz MD at 12:47 EDT ,
== END | disposition home or self-care (01) ==
LOC: OPBI 13:28
PROVIDERS: PCP Family Medicine; Referring Provider Physician Assistant; Visit Provider Physician Assistant
DX: Z12.31 Encounter for screening mammogram for malignant neoplasm of breast (principal)
CPT/HCPCS: 77063; 77067

== ENCOUNTER → 2022-03-01 | Outpatient (CLI) | payer MEDICARE, SELFPAY ==
[2022-03-01 14:03] LABS: Bacteria 0 SEEN /hpf (None Seen); Mucous, Urine 0 SEEN /hpf (<or=2+); Red Blood Cells-Urine 0 SEEN /hpf (0-5); Squamous Epithelial Cells - UA 0 SEEN /hpf (5-10); White Blood Cells 0 SEEN /hpf (0-5)
[2022-03-01 14:26] LABS: Absolute Lymphocyte Count 1.93 X10^3/uL (0.83-4.51); Absolute Neutrophil Count 5.6 X10^3/uL (2.0-7.7); Basophil# 0.05 X10^3/uL; Basophil% 0.6 % (0-1); Eosinophil# 0.14 X10^3/uL; Eosinophils% 1.6 % (0-5); Hematocrit 45.1 % (37-47); Lymphocyte # 1.93 X10^3/ul (0.83-4.51); Lymphocyte % 22.4 % (19-41); Mean Corp Hgb Conc 33.3 g/dL (32-36); Mean Corpuscular Hgb 31.8 pg (27.0-32.0); Mean Corpuscular Volume 95.8 fL (81-99); Mean Platelet Vol. 10.1 fl (6.2-12.0); Monocyte# 0.86 X10^3/uL; NRBC Flagged by Analyzer 0 % (0-5); Neutrophil # 5.63 X10^3/uL (2.7-7.7); Neutrophil % 65.3 % (47-70); Platelet Count 194 K/mm3 (150-450); RBC Distribution Width CV 13.4 % (11.6-14.6); RBC Distribution Width SD 47.8 fl (35.1-43.9); Red Blood Count 4.71 M/mm3 (4.2-5.4); White Blood Count 8.6 K/mm3 (4.4-11.0)
[2022-03-01 14:57] LABS: ALB/GLOB Ratio 0.7 RATIO (0.9-2.4); AST(SGOT) 14 U/L (15-37); Alanine Aminotransfer ALT/SGPT 20 U/L (13-56); Albumin, Serum 3.3 g/dL (3.2-5.0); Alkaline Phosphatase 98 U/L (45-117); Amylase 57 U/L (25-115); Anion Gap 4 (5-15); BUN 20 mg/dL (7-18); BUN/Creat Ratio 22.8 RATIO (10-20); Calcium,Total 9.7 mg/dL (8.5-10.1); Chloride 107 mmol/L (98-107); Creatinine, Serum 0.88 mg/dL (0.55-1.02); EST Glomerular Filtration Rate 67 mL/min (>60); Est Glom Filt Rate - Afr Amer 81 mL/min (>60); Globulin 4.5 g/dL (2.2-4.2); Glucose 92 mg/dL (74-106); Lipase 142 U/L (73-393); Potassium 4.4 mmol/L (3.5-5.1); Protein, Total 7.8 g/dL (6.4-8.2); Sodium Level 140 mmol/L (136-145)
[2022-03-01 16:56] LABS: Color, Urine Yellow (Yellow); Glucose, Dipstick Normal (Normal); Ketone-Dipstick Negative (Negative); Leukocyte Esterase-Dipstick Negative /ul (Negative); Nitrite-Dipstick Negative (Negative); Occult Blood-Urine Negative /ul (Negative); Protein-Dipstick 15 mg/dl (Negative); Urine Bilirubin Dipstick Negative (Negative); Urine Clarity Clear (Clear); Urine Urobilinogen Normal (Normal)
== END | disposition home or self-care (01) ==
LOC: BIMLAB 14:02
PROVIDERS: PCP Family Medicine; Referring Provider Physician Assistant; Visit Provider Physician Assistant
DX: R10.12 Left upper quadrant pain (principal); J30.2 Other seasonal allergic rhinitis
CPT/HCPCS: 36415; 80053; 81001; 82150; 83690; 85025; 87086; 87088

== ENCOUNTER → 2022-03-16 | Outpatient (CLI) | payer MEDICARE, SELFPAY ==
--- NOTE | 2022-03-16 13:42 | CT_ITS ---
STUDY: CT ABDOMEN WITH CONTRAST REASON FOR EXAM: Female, 72 years old. LUQ abdominal pain RADIATION DOSAGE (If Supplied By Facility): CTDIvol = ( 16.12 ) mGy, DLP = ( 836.94 ) mGycm TECHNIQUE: Transaxial images were obtained post I.V. administration of Oral and amp; IV Readi-CAT and amp; 100mL Isovue-370, and with oral contrast. Sagittal and coronal images were reconstructed. Individualized dose optimization techniques were used for this CT. COMPARISON: None. FINDINGS: The visualized lung bases are unremarkable. The visualized portions of the heart are within normal limits. Normal liver. Normal gallbladder and extrahepatic biliary system. There are multiple benign calcified granulomata of the spleen. Normal pancreas. Normal bilateral adrenal glands. No obstructive uropathy, there are bilateral simple parapelvic cysts Normal visualized stomach. Normal small intestine. Retained stool in the colon with scattered diverticula but no CT evidence of acute diverticulitis. Sigmoid colon in particular shows extensive diverticulosis and an underlying lesion cannot be excluded. The appendix is visualized and appears normal. Appendix seen on coronal axial images 70-79 Normal abdominal aorta. Normal inferior vena cava. Normal retroperitoneum. There is a small umbilical hernia containing fat. There are diffuse degenerative changes of the visualized lumbar spine, and pelvis. CT/Abdomen WITH IV Contrast IMPRESSION: No suspicious solid organomegaly, simple parapelvic renal cysts, no specific follow-up needed Colonic diverticulosis without CT evidence of acute diverticulitis. Extensive diverticular disease in the sigmoid colon and underlying lesion cannot be excluded. Appendix visualized Fat-containing periumbilical hernia Degenerative bony changes Electronically Signed: Luis Ruiz MD at 14:44 EDT ,
== END | disposition home or self-care (01) ==
LOC: CT 13:27
PROVIDERS: PCP Family Medicine; Referring Provider Physician Assistant; Visit Provider Physician Assistant
DX: R10.12 Left upper quadrant pain (principal)
CPT/HCPCS: 74160; Q9967; A4216

== ENCOUNTER 2022-04-11 08:58 | Day surgery (SDC) | payer MEDICARE, SELFPAY ==
--- NOTE | 2022-04-11 09:19 | HP.PCM_ITS ---
History and Physical Date of Admission: 04/11/22 Date of Service:? 04/07/22 MR#: [id number] Acct: [id number] Name:VANI WALLACE Rep #: [id number] : 1950 ? ? Provider: Dr. Soila Nelson MD Age/Sex:? 72/F ? ? Location: [facility] [place] Status: Signed Intake Vital Signs ? 04/07/2214:30 BP 144/81 H D Blood Pressure Location Lt popliteal Position Sitting Respiration 17 Pulse 70 Pulse Source Monitor Temp 97.2 F L Temp Source Temporal Pulse Oximetry (%) 100 Oxygen Delivery Method room air Intake Visit Reasons:?LUQ / EPIGASTRIC PAIN Chief Complaint: LUQ/epigastric pain Media Director Required: No Is patient in pain?: Yes Allergies lisinopril Allergy (Verified 04/08/22 09:28) UnknownPenicillins [PCN] Allergy (Verified 04/08/22 09:28) Unknown Medications calcium carb and lactate 200 mg-vitamin D3 6.25 mcg (250 unit) tablet 2 tab PO HS 03/06/18 [History Confirmed 04/08/22] cetirizine 10 mg capsule (Zyrtec) 10 mg PO DAILY PRN allergies 09/10/19 [History Confirmed 04/08/22] lactobacillus combination no.9 4 billion cell capsule (Adult 50 Plus Probiotic) 4,000 mmu cells PO DAILY 09/16/20 [History Confirmed 04/08/22] losartan 100 mg tablet 100 mg PO DAILY #90 tabs 05/14/21 [Rx Confirmed 04/08/22] rosuvastatin 5 mg tablet (Crestor) 5 mg PO DAILY #90 tabs 05/14/21 [Rx Confirmed 04/08/22] prednisone 2.5 mg tablet 2.5 mg PO BID #100 tabs 03/01/22 [Rx Confirmed 04/08/22] omeprazole 20 mg capsule,delayed release 20 mg PO DAILY #90 caps 03/02/22 [Rx Confirmed 04/08/22] potassium chloride 20 mEq tablet,extended release 20 meq PO DAILY #90 tabs 03/18/22 [Rx Confirmed 04/08/22] sucralfate 1 gram tablet (Carafate) 1 g PO QACHS #112 tabs 03/23/22 [Rx Confirmed 04/08/22] tramadol 50 mg tablet 50 mg PO BID PRN pain #60 tabs 03/29/22 [Rx Confirmed 04/08/22] rvovbazj-raw-sihuh3 250 mg-dha 90 mg-epa 160 ox-xadj-jpyg-zeax capsule (Ocuvite Adult 50 Plus) 1 cap PO DAILY 04/07/22 [History Confirmed 04/08/22] acetaminophen 650 mg tablet,extended release (Tylenol Arthritis Pain) 1,300 mg PO DAILY 04/08/22 [History Confirmed 04/08/22] meloxicam 15 mg tablet 15 mg PO FR 04/08/22 [History Confirmed 04/08/22] prednisone 1 mg tablet 2 mg PO LUNCH 04/08/22 [History Confirmed 04/08/22] PFSH Medical History?(Updated 04/09/22 @ 08:[address] Soila Nelson MD) Ambulates with cane Arthritis Arthritis Back pain Back pain Cancer Cataracts, bilateral Chronic cough Diabetes Difficulty balancing Former smoker Gastric reflux Hemorrhoids High cholesterol History of diverticulitis History of edema History of ovarian cancer History of polycystic ovaries History of steroid therapy Hyperlipemia Hypertension Hypertension Knee pain Polymyalgia rheumatica Sciatica Seasonal allergies Shoulder pain Wears glasses Surgical History?(Updated 04/08/22 @ 09:41 by Heather Luu) History of carpal tunnel release History of carpal tunnel surgery of right wrist History of hysterectomy History of knee replacement History of tonsillectomy History of total knee replacement Hx of colonoscopy Family History?(Updated 04/07/22 @ 14:30 by Betty Melgoza) Father Alcoholism Hypertension Heart disease AsthmaMother Hypertension Asthma Breast cancer Cancer DiabetesBrother Hypertension Heart diseaseSister Heart disease Hypertension Social History? Smoking Status:? Former smoker Tobacco: How many years used:? 10 how long ago did patient quit smoking:? 1968 alcohol intake:? never substance use type:? does not use what type of physical activity do you participate in:? none HPI HPI HPI: 72 y/o F presents to office due to epigastric and LUQ pain for EGD.? Pt has never had a EGD.? Pt states pain is? 0/10 now but if she presses on it, it will be 5/10.? Pt denies the pain waking her up at night.? Pain can occasionally be sharp.? Pt was just started on Omeprazole 20 mg about 2 weeks ago and carafate 1 week ago by PCP.? Pt states the carafate maybe helping a little, she isn't sure if the omeprazole is or not.? Pt is on prednisone- about 6mg over the course of the day- due to [place].? Pt has also noticed a lump above her umb. ROS General General: No weight change, appetite, fatigue, colon cancer, breast cancer or weakness HEENT HEENT: Yes eye surgery; No difficulty swallowing, eye injury, swollen glands or hoarseness Endo Endocrine: Yes diabetes mellitus; No thyroid disease, thyroid cancer, Hair loss, heat intolerance or cold intolerance Skin Skin: No rash or changing moles Breast Breast: No left breast lump, right breast lump, nipple discharge, breast pain, abnormal mammogram, abnormal US or breast enlargement Musc Musculoskeletal: Yes back problems and arthritis; No rheumatoid arthritis, gout or joint pain Cardio Cardiovascular: Yes high blood pressure; No murmur, pacemaker, heart disease, atrial fibrillation, heart attack, heart stent, palpitations, shortness of breat with exertion or chest pain Psych Psychiatric: No depression, anxiety or hearing voices Resp Respiratory: No shortness of breath, No sleep apnea, No cough, No COPD, No asthma, No emphysema and No wheezing Gastro Gastrointestinal: Yes abdominal pain, No nausea or vomiting, No diarrhea, No constipation, No blood in stool, No acid reflux, Yes hemorrhoids, No ulcers, No gallbladder problem and No black,tarry stools Michel Hematologic: No blood thinners, No blood disorders, No bleeding, No anemia and No blood clots Neuro Neurologic: No system reviewed and no additional complaints, except as documented, No as per HPI, No abnormal gait, No abnormal hearing, No abnormal movements, No abnormal speech, No behavioral changes, No burning sensations, No confusion, No convulsions, No disequilibrium, No dizziness, No localized weakness, No frequent falls, No headache(s), No lack of coordination, No loss of vision, No memory loss, No numbness, No other visual disturbances, No radicular pain, No restless legs, No sensory deficit, No syncope, No tingling, No tremor(s), No weakness and No other Exam Const General: cooperative, healthy appearing and no acute distress [facility] Head: normal to inspection Resp Effort & Inspection: normal respiratory effort Cardio Rate: regular rate GI Inspection: non-distended Palpation: soft, no guarding, hernia (poss. incisional near umb- incarc with abd fat per CT) and tender in the epigastrum and in the LUQ Skin General: no rashes or lesions noted Neuro General: patient oriented x3 Extrem General: no clubbing, cyanosis or edema Psych Affect: normal affect Assessment and Plan Assessment and Plan (1) Left upper quadrant abdominal pain: ?Status:?Acute (2) Epigastric abdominal pain: ?Status:?Acute (3) Incisional hernia, incarcerated: ?Status:?Acute ?Comment: abd fat per CT Plan Reviewed pt previous CT abd personally not acute changes to account for her luq/epigastric abd pain. I have discussed the above with the patient. I have offered the patient esophagogastroduodenoscopy for evaluation. I have explained the risks/benefits of the procedure and described the procedure.? I have discussed the risks with the patient, including but not limited to:? infection, bleeding, perforation of the GI tract requiring emergency surgery, inability to complete the procedure, injury to any internal organs, complications of anesthesia, etc. - the patient understands and agrees to proceed. I have answered all the patient's questions to the patient's satisfaction and the patient has no further questions. Coding Level of Care Code Off vis,new,level 4 Diagnoses Left upper quadrant abdominal pain? R10.12 Epigastric abdominal pain? R10.13 Incisional hernia, incarcerated? K43.0 04/09/22 0840 <Electronically signed by Soila Nelson MD> Date Soila Nelson MD
[2022-04-11 09:27] VITALS: BP 173/74; PULSE 67; RESP 16; TEMP 36; O2SAT 97; BMI 40.6
[2022-04-11] MEDS: Lactated Ringers 1,000 ML 15 ML IV (09:35)
[2022-04-11 10:01] LABS: Bedside Glucose 82 mg/dL (74-106)
--- NOTE | 2022-04-11 10:30 | IMM_PTH ---
PATIENT: VANI RIZZO LOC: [facility] U#:[id number] AGE/SX: 72/F ROOM: RE04/11/[address]: Dr. Soila Nelson MD : 1950 BED: DIS: 04/11/2022 SPEC #: [id number] RECD: 04/11/22 13:54 STATUS: AMENA REQ #: [id number] JANETH: 04/11/22 10:[address]: Soila Nelson DEPT: IMMUNOHISTOCHEMISTRY RECD BY: Linda Sorenson ENTERED: 04/11/22 13:54 SP TYPE: IMMUNO OTHR DR: Dr. Keith Alvarado, Tissues: Stomach, NOS Procedures: H Pylori (initial) PHYSICIAN & INSTITUTION [place] [address] SPECIMEN INFORMATION: Tissue Source: Antrum biopsy Clinical Info: Left upper quadrant abdominal pain, epigastric abdominal pain, incisional hernia Specimen Number: [id number] CPT code: 52674 METHODOLOGY: Deparaffinized sections of prefer/formalin-fixed tissue or PAP/DQ stained slides are incubated with monoclonal/polyclonal antibodies/oligonucleotide probes. Localization is made via biotin free immunoperoxidase method. Appropriate controls are performed and reacted as expected. Results on target cell population are indicated in the following table: RESULTS: ANTIBODY / CLONE RESULT H Pylori (polyclonal) negative These tests were developed and their performance characteristics determined by [facility]. They may not have been cleared or approved by the U.S. Food and Drug Administration. The FDA has determined that such clearance or approval is not necessary. The above immunohistochemical/dualISH markers are ordered and reviewed by the Pathologist. INTERPRETATION: Antrum, biopsy: Negative for Helicobacter pylori organisms. JANET:justa 04/12/2022
--- NOTE | 2022-04-11 10:30 | EGD_PTH ---
PATIENT: VANI RIZZO LOC: [facility] U#:[id number] AGE/SX: 72/F ROOM: RE04/11/[address]: Dr. Soila Nelson MD : 1950 BED: DIS: 04/11/2022 SPEC #: [id number] RECD: 04/11/22 13:30 STATUS: AMENA CARSON #: [id number] JANETH: 04/11/22 10:[address]: Soila Nelson DEPT: SURGICAL PATHOLOGY RECD BY: Melissa Law ENTERED: 04/11/22 13:31 SP TYPE: EGD BIOPSY OT DR: Dr. Keith Alvarado, DO Tissues: Gastric mucous membrane Procedures: Surgery Specimen Level IV HEADER OPERATION: EGD ([facility] [place]), biopsy PRE-OP DIAGNOSIS: Left upper quadrant abdominal pain, epigastric abdominal pain, incisional hernia TISSUE SUBMITTED: Antrum biopsy for histo and H. pylori MICROSCOPIC DIAGNOSIS Antrum, biopsy: Mild gastritis. See microscopic description and comment. JANET:justa 04/12/2022 COMMENT The results of immunohistochemistry for Helicobacter pylori will be reported separately ([id number]). MICROSCOPIC DESCRIPTION Slides are reviewed. The specimen shows fragments of gastric mucosa with chronic inflammatory cell infiltrates in the lamina propria consisting of lymphocytes and plasma cells, consistent with mild chronic gastritis. GROSS DESCRIPTION Received in fixative is one container labeled with the patient's name and designated antrum biopsy. The specimen consists of one irregular fragment of light bhatia soft tissue that measures 0.4 x 0.4 x 0.1 cm. The specimen is totally submitted in one cassette. / JANET:justa 04/11/2022 TC:3 CPT: 13528
[2022-04-11 10:57] VITALS: BP 127/58; BP 172/74; PULSE 76; RESP 16; TEMP 36.3; O2SAT 95
--- NOTE | 2022-04-11 10:58 | OP.EGD_ITS ---
Patient Name: Pam Flynn Procedure Date: 04/11/2022 10:35 AM Date of : 1950 Age: 72 Procedure: Upper GI endoscopy Indications: Epigastric abdominal pain, Abdominal pain in the left upper quadrant Providers: Soila Nelson MD Medicines: Monitored Anesthesia Care Patient Profile: This is a 72 year old female. Complications: No immediate complications. Procedure: Pre-Anesthesia Assessment: - Prior to the procedure, a History and Physical was performed, and patient medications and allergies were reviewed. The patient's tolerance of previous anesthesia was also reviewed. The risks and benefits of the procedure and the sedation options and risks were discussed with the patient. All questions were answered, and informed consent was obtained. Prior Anticoagulants: The patient has taken no previous anticoagulant or antiplatelet agents. ASA Grade Assessment: Per anesthesia. After reviewing the risks and benefits, the patient was deemed in satisfactory condition to undergo the procedure. After obtaining informed consent, the endoscope was passed under direct vision. Throughout the procedure, the patient's blood pressure, pulse, and oxygen saturations were monitored continuously. The gastroscope was introduced through the mouth, and advanced to the second part of duodenum. The upper GI endoscopy was accomplished without difficulty. The patient tolerated the procedure well. Scope In: 10:46:36 AM Scope Out: 10:52:00 AM Total Procedure Duration Time 0 hours 5 minutes 24 seconds Findings: The Z-line was variable. Mildly erythematous mucosa without bleeding was found in the gastric antrum. Biopsies were taken with a cold forceps for histology. Biopsies were taken with a cold forceps for Helicobacter pylori cultures. The examined duodenum was normal. The cardia and gastric fundus were normal on retroflexion. Bilious fluid was found in the gastric antrum. Impression: - Z-line variable. - Erythematous mucosa in the antrum. Biopsied. - Normal examined duodenum. - Bilious gastric fluid. Recommendation: - Await pathology results. - Discharge patient to home. - Use Prilosec (omeprazole) 40 mg PO daily. - Continue present medications. Procedure Code(s): --- Professional --- 84459, Esophagogastroduodenoscopy, flexible, transoral; with biopsy, single or multiple Diagnosis Code(s): --- Professional --- K22.8, Other specified diseases of esophagus K31.89, Other diseases of stomach and duodenum R10.13, Epigastric pain R10.12, Left upper quadrant pain CPT copyright 2017 [employer]. All rights reserved. The codes documented in this report are preliminary and upon head of digital advertising & integration review may be revised to meet current compliance requirements. MD Soila Desir MD 04/11/2022 10:58:09 AM This report has been signed electronically. Number of Addenda: 0 Note Initiated On: 04/11/2022 10:35 AM
--- NOTE | 2022-04-11 10:59 | OP.CCLET_ITS ---
04/11/2022 Keith Alvarado Re : Upper GI endoscopy procedure for Pam Zieglerr Dear Dr. Alvarado This procedure was performed on Monday, April 11, 2022. My impressions and recommendations are as follows: Impressions : - Z-line variable. - Erythematous mucosa in the antrum. Biopsied. - Normal examined duodenum. - Bilious gastric fluid. Recommendations : - Await pathology results. - Discharge patient to home. - Use Prilosec (omeprazole) 40 mg PO daily. - Continue present medications. My findings are described in the full procedure note, which is enclosed. If I can be of further assistance, please feel free to contact me at Doctor phone number(s): , Work: . Sincerely, MD Soila Desir MD 04/11/2022 10:58:09 AM This report has been signed electronically.
[2022-04-11 11:00] VITALS: BP 124/60; BP 172/74; PULSE 65; RESP 16; O2SAT 100
[2022-04-11 11:05] VITALS: BP 120/57; BP 172/74; PULSE 67; RESP 16; O2SAT 100
[2022-04-11 11:10] VITALS: BP 121/65; BP 172/74; PULSE 65; RESP 16; O2SAT 100
[2022-04-11 11:15] VITALS: BP 133/68; BP 172/74; PULSE 66; RESP 16; TEMP 36.1; O2SAT 100
== END 2022-04-11 11:56 | disposition home or self-care (01) ==
LOC: EN 08:59 → AC 09:01
PROVIDERS: PCP Family Medicine; Referring Provider Family Medicine; Visit Provider Surgery
PROC: 0DJ08ZZ Inspection of Upper Intestinal Tract, Via Natural or Artificial Opening Endoscopic (ICD-10-PCS; CPT 43235; principal; 2022-04-11 10:25)
DX: K31.89 Other diseases of stomach and duodenum (principal); K22.89 Other specified disease of esophagus; K29.50 Unspecified chronic gastritis without bleeding; I10 Essential (primary) hypertension; K21.9 Gastro-esophageal reflux disease without esophagitis; E78.00 Pure hypercholesterolemia, unspecified; Z87.891 Personal history of nicotine dependence; Z79.899 Other long term (current) drug therapy
CPT/HCPCS: 43239; 82962; 88305; 88342; J7120; J2405

== ENCOUNTER → 2023-03-29 | Outpatient (CLI) | payer MEDICARE, SELFPAY ==
[2023-03-29 18:07] LABS: ALB/GLOB Ratio 0.7 RATIO (0.9-2.4); AST(SGOT) 15 U/L (15-37); Alanine Aminotransfer ALT/SGPT 20 U/L (13-56); Albumin, Serum 3.3 g/dL (3.2-5.0); Alkaline Phosphatase 80 U/L (45-117); Anion Gap 2 (5-15); BUN 16 mg/dL (7-18); BUN/Creat Ratio 16.8 RATIO (10-20); Calcium,Total 9.4 mg/dL (8.5-10.1); Chloride 108 mmol/L (98-107); Cholesterol 134 mg/dL (200); Creatinine, Serum 0.95 mg/dL (0.55-1.02); EST Glomerular Filtration Rate 61 mL/min (>60); Est Glom Filt Rate - Afr Amer 74 mL/min (>60); Globulin 4.6 g/dL (2.2-4.2); Glucose 98 mg/dL (74-106); High Density Lipoprotein 70 mg/dL; Potassium 4.2 mmol/L (3.5-5.1); Protein, Total 7.9 g/dL (6.4-8.2); Sodium Level 139 mmol/L (136-145); Triglycerides 112 mg/dL; Very Low Density Lipoprotein 22 mg/dL (5-40)
== END | disposition home or self-care (01) ==
PROVIDERS: PCP Family Medicine; Visit Provider Family Medicine
DX: E66.01 Morbid (severe) obesity due to excess calories (principal)
CPT/HCPCS: 36415; 80053; 80061

== ENCOUNTER → 2023-04-28 | Outpatient (CLI) | payer MEDICARE, SELFPAY ==
--- NOTE | 2023-04-28 13:12 | BI_ITS ---
MAMMOGRAPHY - BILATERAL SCREENING REASON FOR EXAM: Female, 73 years old. Routine annual screening examination. PERTINENT HISTORY: Mother with breast cancer. TECHNIQUE: Digital bilateral breast claude (3D mammographic acquisition) in the CC and MLO projections. 2-D mediolateral oblique (MLO) and craniocaudad (CC) views of both breasts were obtained. CAD: Full Field Digital Mammography with Computer Added Detection was performed. COMPARISON: Comparison is made with prior study February 10, 2022 and December 28, 2020. FINDINGS: Breast Composition: The breasts are almost entirely fatty. There are no dominant masses or suspicious calcifications. Stable small benign-appearing bilateral axillary lymph nodes. No other significant abnormalities are identified. There has been no significant change since the prior study. BI/SCRN MAMM (CAD)W/CLAUDE BILAT IMPRESSION: Stable bilateral screening mammogram. Yearly follow-up mammogram recommended. (A) ASSESSMENT CATEGORY: BIRADS Category 2: Benign. A letter regarding these results will be sent to the patient by the facility within 30 days. Approximately 10% of breast cancers are not detected by mammography. A normal mammogram should not delay biopsy of a clinically suspicious abnormality. [id number] Electronically Signed: Bradly Puente MD at 14:30 EDT ,
== END | disposition home or self-care (01) ==
LOC: OPBI 13:11
PROVIDERS: PCP Family Medicine; Referring Provider Family Medicine; Visit Provider Family Medicine
DX: Z12.31 Encounter for screening mammogram for malignant neoplasm of breast (principal)
CPT/HCPCS: 77063; 77067

== ENCOUNTER 2023-10-28 13:37 | Emergency (ER) | payer MEDICARE, SELFPAY ==
[2023-10-28 13:39] VITALS: BP 149/82; PULSE 87; RESP 22; TEMP 36.3; O2SAT 99; BMI 40.0
--- NOTE | 2023-10-28 13:53 | CT_ITS ---
We are attempting to reach an attending provider to discuss findings. An addendum with communication details will be sent when the communication is complete. STUDY: CT Abdomen And Pelvis W/ Contrast Injection 10/28/2023 3:08 PM REASON FOR EXAM: Female, 73 years old. Abdominal pain lower abd pain w. diverticulitis hx Individualized dose optimization techniques were used for this CT. COMPARISON: None. TECHNIQUE: CT Abdomen And Pelvis W/ Contrast Injection IV 100mL Isovue-370 FINDINGS: The visualized portions of the heart are within normal limits. Normal liver. Normal gallbladder and extrahepatic biliary system. There are multiple benign calcified granulomata of the spleen. Normal pancreas. Normal bilateral adrenal glands.Non obstructive 2 mm right renal parenchymal stones. Right renal peripelvic cyst. Left renal peripelvic cyst. Normal visualized stomach. Normal small intestine. There is diverticulosis, with thickening of the colon wall, and pericolonic inflammation changes consistent with acute diverticulitis. No free air visualized. However, there is a pelvic abscess measuring 72 x 41 mm. Tubular component of the abscess extends almost to the anterior abdominal wall measuring 77 x 32 mm. The appendix is visualized and appears normal. Rectal diverticulitis. There are calcifications of the abdominal aorta. This is consistent for atherosclerotic disease. There is NO abdominal aortic aneurysm. Vascular workup can be obtained based on clinical correlation. Normal inferior vena cava. Subcentimeter mesenteric lymph nodes. Normal urinary bladder. There is absence of the uterus consistent with a prior hysterectomy. Large umbilical hernia. There are diffuse degenerative changes of the visualized lumbar spine. Scoliosis of the lumbar spine. There is bilateral neural foraminal stenosis at L4-5 and L5-S1. CT/Abdomen/Pelvis W IV Cont ONLY IMPRESSION: (NOT LISTED IN ORDER OF SIGNIFICANCE) Acute rectal sigmoid diverticulitis with formation of a pelvic abscess. Other findings as above. Electronically Signed: Vito Cuenca MD at 15:13 EDT ,
--- NOTE | 2023-10-28 13:54 | EDS_ITS ---
HPI HPI - GI History of Present Illness Chief Complaint: Complaint Detail of Chief Complaint: Lower abdominal pain. Informant: patient Abdominal Pain/Flank Pain Onset: Weeks Context: Gradual Onset Timing: Continuous Quality: Cramping Location: RLQ and LLQ Current Severity: Mild Maximum Severity: Mild Worsened by: Nothing Relieved by: Nothing Nausea/Vomiting/Emesis GI Symptom: Negative for Nausea or Vomiting Diarrhea/Melena/Hematochezia GI Symptom: Negative for Diarrhea, Melena or Hematochezia Associated Symptoms Associated Symptoms: Negative for Dysuria, Frequency, Hematuria or Urgency Narrative Narrative: 73-year-old female history of diabetes, prior diverticulitis and prior hysterectomy. Complaining of lower abdominal pain for about 2 weeks. She thinks she might have diverticulitis again. Denies vomiting or diarrhea. No fever. Denies discolored, cloudy or bloody urine. Says she has more discomfort after she urinates. Besides her hysterectomy no other prior abdominal surgeries. Prior similar symptoms: Yes Recent Illness/Hospitalization: No PFSH PFSH Medical History Ambulates with cane Arthritis Arthritis Back pain Back pain Cancer Cataracts, bilateral Chronic cough Diabetes Difficulty balancing Former smoker Gastric reflux Hemorrhoids High cholesterol History of diverticulitis History of edema History of ovarian cancer History of polycystic ovaries History of steroid therapy Hyperlipemia Hypertension Hypertension Knee pain Polymyalgia rheumatica Sciatica Seasonal allergies Shoulder pain Wears glasses Home Medications calcium carb and lactate 200 mg-vitamin D3 6.25 mcg (250 unit) tablet 2 tab PO HS 03/06/18 [History Last Taken Unknown] cetirizine 10 mg capsule (Zyrtec) 10 mg PO DAILY PRN allergies 09/10/19 [History Last Taken Unknown] lactobacillus combination no.9 4 billion cell capsule (Adult 50 Plus Probiotic) 4,000 mmu cells PO DAILY 09/16/20 [History Last Taken Unknown] ixkkanrl-spn- 250 mg-dha 90 mg-epa 160 ve-bknp-necq-zeax capsule (Ocuvite Adult 50 Plus) 1 cap PO DAILY 04/07/22 [History Last Taken Unknown] acetaminophen 650 mg tablet,extended release (Tylenol Arthritis Pain) 1,300 mg PO DAILY 04/08/22 [History Last Taken 04/11/22] omeprazole 20 mg capsule,delayed release 20 mg PO DAILY #90 caps 05/03/22 [Rx Last Taken Unknown] coffee extract 100 mg-phosphatidyl serine 100 mg capsule (Neuriva Original) cap PO 03/29/23 [History Last Taken Unknown] rosuvastatin 5 mg tablet (Crestor) 5 mg PO DAILY #90 tabs 04/18/23 [Rx Last Taken Unknown] losartan 100 mg tablet 100 mg PO DAILY #90 tabs 05/23/23 [Rx Last Taken Unknown] celecoxib 200 mg capsule (Celebrex) 200 mg PO DAILY #90 caps 09/01/23 [Rx Last Taken Unknown] potassium chloride 20 mEq tablet,extended release 20 meq PO DAILY #90 tabs 09/01/23 [Rx Last Taken Unknown] prednisone 1 mg tablet 2 mg (2 x 1 mg) PO LUNCH #180 tabs 09/20/23 [Rx Last Taken Unknown] prednisone 2.5 mg tablet 2.5 mg PO BID #180 tabs 09/21/23 [Rx Last Taken Unknown] tramadol 50 mg tablet 50 mg PO BID PRN pain #60 tabs 10/04/23 [Rx Last Taken Unknown] Allergy/AdvReac Type Severity Reaction Status Date / Time Penicillins [PCN] Allergy Swelling Verified 10/28/23 13:39 lisinopril AdvReac Other Verified 10/28/23 13:39 Family History Father Alcoholism Hypertension Heart disease Asthma Mother Hypertension Asthma Breast cancer Cancer Diabetes Brother Hypertension Heart disease Sister Heart disease Hypertension Surgical History History of carpal tunnel release History of carpal tunnel surgery of right wrist History of hysterectomy History of knee replacement History of tonsillectomy History of total knee replacement Hx of colonoscopy Social History Smoking Status: Former smoker Tobacco: How many years used: 10 how long ago did patient quit smokin alcohol intake: never substance use type: does not use what type of physical activity do you participate in: none ROS ROS ED ROS Narrative Lower abdominal pain. Denies vomiting or diarrhea. No fever. Review of Systems ROS Unobtainable: Denies due to encephalopathy Constitutional Constitutional ED: Denies chills or fever(s) ENT ENT ED: Denies ear pain, rhinorrhea or sore throat Cardiovascular Cardiovascular: Denies chest pain or palpitations Respiratory/Chest Respiratory/Chest: Denies cough or dyspnea Gastrointestinal Gastrointestinal: Reports abdominal pain; Denies constipation, diarrhea, melena, nausea or vomiting Genitourinary Genitourinary ED: Denies dysuria or hematuria Musculoskeletal Musculoskeletal: Denies arthralgias Integumentary Denies abscess Psychiatric Psychiatric: Denies anxiety Endocrine Endocrinology: Denies polydipsia Hematologic/Lymphatic Hematologic/Lymphatic: Denies easy bleeding Allergic/Immunologic Allergic/Immunologic ED: Denies mouth swelling, tongue swelling or urticaria EXAM Physical Exam Narrative Exam Narrative: 73-year-old female no acute distress vital signs stable afebrile. HEENT exam unremarkable. Lungs clear. Heart regular rhythm no murmur. Abdomen soft, nondistended normal bowel sounds no peritoneal signs. She does have tenderness on both lower quadrants and suprapubic. No hernia or mass. No pulsatile mass. No obvious signs of trauma. Both upper quadrants are unremarkable. No specific McBurney's point tenderness or Matthews sign. No distention. No obstruction. Moving all 4 extremities. Normal strength. Back nontender. Neurologically she is awake and alert no focal motor deficits. Const Vital Signs: 10/28/23 13:39 Temperature 97.4 F L Temperature Source Temporal Pulse Rate 87 Respiratory Rate 22 H Blood Pressure 149/82 H Blood Pressure Mean 104 Pulse Ox 99 Positive well nourished and well developed; Negative for cachectic, contractures or unkempt General Appearance ED: well developed and NAD; Negative for unkempt, cachectic, contractures or pallor Nutritional Appearance: Negative for cachectic HEENT Reports moist mucous membranes; Denies dry mucous membranes normocephalic and atraumatic; Negative for trauma or tenderness Mouth ED: No dry mucous membranes Mouth: No dry mucous membranes Eyes PERRL and EOMs intact bilaterally General Eye ED: Negative for pale conjunctiva or scleral icterus Neck no lymphadenopathy, supple and no JVD General: Negative for tenderness Carotids: Negative for other Lymph Lymphatic: Negative for other Resp normal respiratory effort and clear to auscultation bilaterally Effort and Inspection: Negative for respiratory distress Auscultation: Negative for rales, rhonchi or wheezes Cardio regular rate, regular rhythm, S1 normal heart sound, S2 normal heart sound and no murmurs Rate: Negative for bradycardia or tachycardic Rhythm: Negative for abnormal rhythm GI non-distended and no masses; Negative for non-tender Inspection: Negative for abdominal distention Auscultation: normoactive bowel sounds Palpation: soft and tender; Negative for guarding, hernia, mass, pulsatile mass or rebound tenderness present Back/Spine no CVA tenderness General Back: Negative for CVA tenderness Cervical Spine: Negative for cervical spine tenderness Thoracic Spine / Upper Back: Negative for thoracic spinal tenderness Lumbar Spine / Lower Back: Negative for lumbar spinal tenderness Coccyx: Negative for other Extremity full ROM General Extremety ED: Negative for edema or tenderness General Extremity: Negative for edema Neuro CN's II-XII intact bilaterally and moves all extremities Sensorium / Orientation: alert, oriented to person, oriented to place and oriented to time; Negative for orientation impaired, confused, lethargic or stuporous Motor Exam: strength 5/5 throughout Psych mental status grossly normal and thought process normal Appearance: Negative for unkempt Attitude: No agitated Mood & Affect: Negative for depressed, anxious or tearful Skin no wounds General Skin Exam: Negative for jaundice or pallor Lesions: no lesions Rashes: no rashes Trauma: Negative for abrasion Nails: Negative for discolored MDM MDM MDM Narrative Medical decision making narrative: 73-year-old female with bilateral lower quadrant and suprapubic abdominal discomfort for about 2 weeks. Differential would include UTI versus diverticulitis versus other etiology. She currently does not want anything for pain or nausea. CAT scan and labs are pending. Repeat exam patient is doing well at 3:45 PM. She and I discussed all of her test results specifically the CAT scan with diverticulitis with pelvic abscess. I also discussed this with general surgery on-call who felt this should have interventional radiology place a drain. I specifically spoke to the patient about that. She strongly does not want to be transferred. She understands we do not have interventional radiology until at least Monday and we may not even have it then. She does not want to be transferred. She understands the risks and benefits. I spoke to the hospitalist and she will be admitted. She will be started on IV Zosyn. History & Record Review Discussion w/independent historian: Patient and Family Additional record(s) reviewed:: Prior inpatient record, Prior outpatient record, Prior ED visit and Prior labs Lab Data Attestation: I reviewed the patient's lab results. Lab results narrative: CBC shows no elevated white count of 16.4. H&H of 13.9 and 43. Platelets 361. Chemistries gap 7. BUN 23 creatinine 1.1. Glucose 143. UA is negative. No white or red cells. No nitrates. CAT scan abdomen pelvis shows sigmoid diverticulitis with pelvic abscess. Labs: Laboratory Results - last 24 hr 10/28/23 10/28/23 14:00 15:12 WBC 16.4 H RBC 4.66 Hgb 13.9 Hct 43.2 MCV 92.7 MCH 29.8 MCHC 32.2 RDW Std Deviation 47.4 H RDW Coeff of Augie 14.0 Plt Count 361 MPV 9.3 Immature Gran % (Auto) 0.400 Neut % (Auto) 78.9 H Lymph % (Auto) 11.7 L [place] % (Auto) 7.7 Eos % (Auto) 0.9 Baso % (Auto) 0.4 Absolute Neuts (auto) 12.9 H Absolute Lymphs (auto) 1.92 Nucleated RBC % 0 Sodium 136 Potassium 4.2 Chloride 104 Carbon Dioxide 25.0 Anion Gap 7 BUN 23 H Creatinine 1.01 Estim Creat Clear Calc 55.54 Est GFR (MDRD) Af Amer 69 Est GFR (MDRD) Non-Af 57 L BUN/Creatinine Ratio 22.8 H Glucose 143 H Calcium 9.3 Urine Color Yellow Urine Clarity Clear Urine pH 7.0 Ur Specific [place] 1.005 Urine Protein 30 H Urine Glucose (UA) Normal Urine Ketones Negative Urine Occult Blood 25 H Urine Nitrite Negative Urine Bilirubin Negative Urine Urobilinogen Normal Ur Leukocyte Esterase 25 H Urine RBC 0-5 SEEN Urine WBC 0-5 SEEN Ur Squamous Epith Cells 0-5 SEEN Urine Bacteria 1+ Urine Mucus 0 SEEN Radiography Diagnostic Testing: Clinical Impression(s) from Imaging Studies Abdomen/Pelvis CT 10/28/23 13:53 IMPRESSION: (NOT LISTED IN ORDER OF SIGNIFICANCE) Acute rectal sigmoid diverticulitis with formation of a pelvic abscess. Other findings as above. Electronically Signed: Vito Cuenca MD at 15:13 EDT , ADDENDUM: 10/28/23 1532 IMPRESSION: (NOT LISTED IN ORDER OF SIGNIFICANCE) Acute rectal sigmoid diverticulitis with formation of a pelvic abscess. Other findings as above. N.B. : The above Results were Read Back by Vito Cuenca MD to Keyon Gonzalez MD, and understanding confirmed on 10/28/2023 15:25:07 (ET). Electronically Signed: Vito Cuenca MD at 15:13 EDT Reading Location ID and State: [facility] / [place] , Service support , Discharge Plan Dx/Rx/DC Orders Clinical Impression: Diverticulitis of intestine with abscess, History of diabetes mellitus, A bdominal pain Disposition Disposition: Acute Care [facility]
[2023-10-28 14:13] LABS: Absolute Lymphocyte Count 1.92 X10^3/uL (0.83-4.51); Absolute Neutrophil Count 12.9 X10^3/uL (2.0-7.7); Basophil# 0.07 X10^3/uL; Basophil% 0.4 % (0-1); Eosinophil# 0.15 X10^3/uL; Eosinophils% 0.9 % (0-5); Hematocrit 43.2 % (37-47); Hemoglobin 13.9 g/dL (12.0-15.0); Lymphocyte # 1.92 X10^3/ul (0.83-4.51); Lymphocyte % 11.7 % (19-41); Mean Corp Hgb Conc 32.2 g/dL (32-36); Mean Corpuscular Hgb 29.8 pg (27.0-32.0); Mean Corpuscular Volume 92.7 fL (81-99); Mean Platelet Vol. 9.3 fl (6.2-12.0); Monocyte# 1.27 X10^3/uL; Monocyte% 7.7 % (0-10); NRBC Flagged by Analyzer 0 % (0-5); Neutrophil # 12.93 X10^3/uL (2.7-7.7); Neutrophil % 78.9 % (47-70); Platelet Count 361 K/mm3 (150-450); RBC Distribution Width SD 47.4 fl (35.1-43.9); Red Blood Count 4.66 M/mm3 (4.2-5.4); White Blood Count 16.4 K/mm3 (4.4-11.0)
[2023-10-28 14:30] LABS: Anion Gap 7 (5-15); BUN 23 mg/dL (7-18); BUN/Creat Ratio 22.8 RATIO (10-20); Calcium,Total 9.3 mg/dL (8.5-10.1); Chloride 104 mmol/L (98-107); Creatinine, Serum 1.01 mg/dL (0.55-1.02); EST Glomerular Filtration Rate 57 mL/min (>60); Est Glom Filt Rate - Afr Amer 69 mL/min (>60); Estimated Creatinine Clearance 55.54 ml/min; Glucose 143 mg/dL (74-106); Potassium 4.2 mmol/L (3.5-5.1); Sodium Level 136 mmol/L (136-145)
[2023-10-28 15:23] LABS: Mucous, Urine 0 SEEN /hpf (<or=2+)
[2023-10-28 15:35] LABS: Color, Urine Yellow (Yellow); Glucose, Dipstick Normal (Normal); Ketone-Dipstick Negative (Negative); Leukocyte Esterase-Dipstick 25 /ul (Negative); Nitrite-Dipstick Negative (Negative); Occult Blood-Urine 25 /ul (Negative); Protein-Dipstick 30 mg/dl (Negative); Specific Gravity, Urine 1.005 (1.002-1.030); Urine Bilirubin Dipstick Negative (Negative); Urine Clarity Clear (Clear); Urine Urobilinogen Normal (Normal)
[2023-10-28 15:36] LABS: Bacteria 1+ /hpf (None Seen); Red Blood Cells-Urine 0-5 SEEN /hpf (0-5); Squamous Epithelial Cells - UA 0-5 SEEN /hpf (5-10); White Blood Cells 0-5 SEEN /hpf (0-5)
[2023-10-28 15:37] VITALS: BP 134/78; PULSE 78; RESP 16; O2SAT 98
--- NOTE | 2023-10-28 15:56 | NURSING ---
HOSPITALIST FOR DR ASH
[2023-10-28 16:00] VITALS: BP 134/78; PULSE 78; RESP 16; TEMP 36.4; O2SAT 99
--- NOTE | 2023-10-28 16:03 | NURSING ---
MED SURG TONEY DIVERTICULITIS WITH ABSCESS, DM HX
--- NOTE | 2023-10-28 16:08 | PCM.HP.STD ---
HPI - General General Date of Service: 10/28/23 Chief Complaint: Left lower quadrant abdominal pain HPI Narrative Patient transferred to tertiary care facility for further management by interventional radiology/surgery for the pelvic abscess. She was not admitted at [facility]. [facility] Medical History Ambulates with cane Arthritis Arthritis Back pain Back pain Cancer Cataracts, bilateral Chronic cough Diabetes Difficulty balancing Former smoker Gastric reflux Hemorrhoids High cholesterol History of diverticulitis History of edema History of ovarian cancer History of polycystic ovaries History of steroid therapy Hyperlipemia Hypertension Hypertension Knee pain Polymyalgia rheumatica Sciatica Seasonal allergies Shoulder pain Wears glasses Home Medications cetirizine 10 mg capsule (Zyrtec) 10 mg PO DAILY PRN allergies 09/10/19 [History Last Taken 10/28/23] lactobacillus combination no.9 4 billion cell capsule (Adult 50 Plus Probiotic) 4,000 mmu cells PO DAILY 09/16/20 [History Last Taken 10/28/23] hbetsmpx-ocr- 250 mg-dha 90 mg-epa 160 ai-ibja-nlhx-zeax capsule (Ocuvite Adult 50 Plus) 1 cap PO DAILY 04/07/22 [History Last Taken 10/28/23] acetaminophen 650 mg tablet,extended release (Tylenol Arthritis Pain) 1,300 mg PO DAILY 04/08/22 [History Last Taken 10/27/23] omeprazole 20 mg capsule,delayed release 20 mg PO DAILY #90 caps 05/03/22 [Rx Last Taken 10/28/23] coffee extract 100 mg-phosphatidyl serine 100 mg capsule (Neuriva Original) 1 cap PO DAILY LEG NERVE PAIN 03/29/23 [History Last Taken 10/28/23] losartan 100 mg tablet 100 mg PO DAILY #90 tabs 05/23/23 [Rx Last Taken 10/28/23] celecoxib 200 mg capsule (Celebrex) 200 mg PO DAILY #90 caps 09/01/23 [Rx Last Taken 10/28/23] potassium chloride 20 mEq tablet,extended release 20 meq PO DAILY #90 tabs 09/01/23 [Rx Last Taken 10/28/23] prednisone 2.5 mg tablet 2.5 mg PO BID #180 tabs 09/21/23 [Rx Last Taken 10/28/23] tramadol 50 mg tablet 50 mg PO BID PRN pain #60 tabs 10/04/23 [Rx Last Taken Unknown] cholecalciferol (vitamin D3) 50 mcg (2,000 unit) capsule (Vitamin D3) 50 mcg PO DAILY 10/28/23 [History Last Taken 10/28/23] omega-3 fatty acids 1,000 mg capsule 1,000 mg PO DAILY 10/28/23 [History Last Taken 10/28/23] prednisone 1 mg tablet 2 mg PO LUNCH 10/28/23 [History Last Taken 10/27/23] rosuvastatin 5 mg tablet (Crestor) 5 mg PO QHS 10/28/23 [History Last Taken 10/27/23] Allergy/AdvReac Type Severity Reaction Status Date / Time Penicillins [PCN] Allergy Swelling Verified 10/28/23 13:39 lisinopril AdvReac Other Verified 10/28/23 13:39 Family History Father Alcoholism Hypertension Heart disease Asthma Mother Hypertension Asthma Breast cancer Cancer Diabetes Brother Hypertension Heart disease Sister Heart disease Hypertension Surgical History History of carpal tunnel release History of carpal tunnel surgery of right wrist History of hysterectomy History of knee replacement History of tonsillectomy History of total knee replacement Hx of colonoscopy Social History Smoking Status: Former smoker Tobacco: How many years used: 10 how long ago did patient quit smokin alcohol intake: never substance use type: does not use what type of physical activity do you participate in: none ROS Review of Systems ROS Unobtainable: Denies due to encephalopathy, due to endotracheal tube, due to mental condition, due to mental status or other Constitutional Constitutional: Reports fatigue and weakness; Denies anorexia, change in weight, chills, fever(s), malaise, night sweats or other Eyes Eyes: Denies blurry vision, change in eye color, change in vision, discharge from eye(s), double vision, erythema, eye pain, loss of vision or other ENT HEENT: Denies abnormal hearing, dysphagia, ear pain, epistaxis, headache(s), hearing loss, nasal congestion, nasal discharge, post nasal drip, sinus pressure, sore throat or other Cardiovascular Cardiovascular: Denies chest pain, claudication, dyspnea on exertion, edema, lightheadedness, orthopnea, palpitations, paroxysmal nocturnal dyspnea, rapid heart rate, syncope or other Respiratory/Chest Respiratory/Chest: Denies cough, dyspnea, excessive phlegm production, hemoptysis, productive cough, shortness of breath at rest, shortness of breath with exertion, wheezing or other Gastrointestinal Gastrointestinal: Reports abdominal pain and constipation; Denies coffee ground emesis, diarrhea, dyspepsia, hematemesis, hematochezia, loose stools, melena, nausea, vomiting or other Genitourinary Genitourinary: Denies burning urination, difficulty urinating, dysuria, hematuria, nocturia, urinary frequency, urinary hesitancy, urinary incontinence, urinary urgency or other Musculoskeletal Musculoskeletal: Denies arthralgias, back pain, joint pain, joint stiffness, joint swelling, myalgias, neck pain or other Neurologic Neurologic: Denies abnormal gait, abnormal speech, confusion, disequilibrium, dizziness, focal weakness, headache(s), numbness, paresthesias, seizure-like activity, seizures, syncope, tingling, tremor(s) or other Psychiatric Psychiatric: Denies anxiety, depression, homicidal ideation, suicidal ideation or other Endocrine Endocrinology: Denies change in body appearance, cold intolerance, excessive sweating, heat intolerance, polydipsia, polyuria or other Hematologic/Lymphatic Hematologic/Lymphatic: Denies anemia, easy bleeding, easy bruising, lymphadenopathy or other Allergic/Immunologic Allergic/Immunologic: Denies rhinitis, hives, eczemia, asthma or other Vital Signs Vital Signs Vital Signs: 10/28/23 13:39 10/28/23 15:37 10/28/23 16:00 Temperature 97.4 F L 97.6 F L Temperature Source Temporal Pulse Rate 87 78 78 Respiratory Rate 22 H 16 16 Blood Pressure 149/82 H 134/78 H 134/78 H Blood Pressure Mean 104 96 96 Pulse Ox 99 98 99 Oxygen Delivery Method Room Air Weight Weight: 229 lb 9.6 oz Body Mass Index (BMI) 40.0 Physical Exam Const alert and oriented x3 HEENT normocephalic Eyes PERRL Neck no lymphadenopathy and supple Resp normal respiratory effort and no retractions Cardio regular rate and regular rhythm GI normal to inspection, nondistended, normoactive bowel sounds, soft to palpation and non-tender Extremity normal to inspection and full ROM Neuro oriented x3 and CN's II-XII intact bilaterally Sensorium / Orientation: awake, alert and oriented to person Psych affect normal Results Medical Records Data Attestation: I reviewed the patient's medical records Lab / Micro Data Attestation: I reviewed the patient's lab results. 10/28/23 14:00 10/28/23 14:00 Labs: Laboratory Results - last 24 hr 10/28/23 14:00: WBC 16.4 H, RBC 4.66, Hgb 13.9, Hct 43.2, MCV 92.7, MCH 29.8, MCHC 32.2, RDW Std Deviation 47.4 H, RDW Coeff of Augie 14.0, Plt Count 361, MPV 9.3, Immature Gran % (Auto) 0.400, Neut % (Auto) 78.9 H, Lymph % (Auto) 11.7 L, [place] % (Auto) 7.7, Eos % (Auto) 0.9, Baso % (Auto) 0.4, Absolute Neuts (auto) 12.9 H, Absolute Lymphs (auto) 1.92, Nucleated RBC % 0, Sodium 136, Potassium 4.2, Chloride 104, Carbon Dioxide 25.0, Anion Gap 7, BUN 23 H, Creatinine 1.01, Estim Creat Clear Calc 55.54, Est GFR (MDRD) Af Amer 69, Est GFR (MDRD) Non-Af 57 L, BUN/Creatinine Ratio 22.8 H, Glucose 143 H, Calcium 9.3 10/28/23 15:12: Urine Color Yellow, Urine Clarity Clear, Urine pH 7.0, Ur Specific [place] 1.005, Urine Protein 30 H, Urine Glucose (UA) Normal, Urine Ketones Negative, Urine Occult Blood 25 H, Urine Nitrite Negative, Urine Bilirubin Negative, Urine Urobilinogen Normal, Ur Leukocyte Esterase 25 H, Urine RBC 0-5 SEEN, Urine WBC 0-5 SEEN, Ur Squamous Epith Cells 0-5 SEEN, Urine Bacteria 1+, Urine Mucus 0 SEEN Imaging Radiology Impression Abdomen/Pelvis CT 10/28/23 13:53 IMPRESSION: (NOT LISTED IN ORDER OF SIGNIFICANCE) Acute rectal sigmoid diverticulitis with formation of a pelvic abscess. Other findings as above. Electronically Signed: Vito Cuenca MD at 15:13 EDT , ADDENDUM: 10/28/23 1532 IMPRESSION: (NOT LISTED IN ORDER OF SIGNIFICANCE) Acute rectal sigmoid diverticulitis with formation of a pelvic abscess. Other findings as above. N.B. : The above Results were Read Back by Vito Cuenca MD to Keyon Gonzalez MD, and understanding confirmed on 10/28/2023 15:25:07 (ET). Electronically Signed: Vito Cuenca MD at 15:13 EDT , Assessment & Plan Assessment/Plan (1) Diverticulitis of intestine with abscess:
[2023-10-28] MEDS: Piperacil/Tazobactam 4.5 GM in 0.9% Normal Saline (100mL MB+) 100 ML IV (16:17)
[2023-10-28 17:00] VITALS: BP 130/78; PULSE 88; RESP 16; O2SAT 99
--- NOTE | 2023-10-28 17:38 | NURSING ---
FAXED FACESHEET TO [facility]
--- NOTE | 2023-10-28 17:45 | NURSING ---
ACCEPTED, WAITING ON A BED
--- NOTE | 2023-10-28 17:57 | NURSING ---
[facility] H5 [id number] NURSE TO NURSE [phone]
--- NOTE | 2023-10-28 18:13 | NURSING ---
CALLED [facility], ETA IS 90 MIN
[2023-10-28 19:33] VITALS: BP 167/92; PULSE 92; RESP 16; O2SAT 98
[2023-10-28] MEDS: Ondansetron 4 MG/2 ML Vial IV (19:38)
[2023-10-28] MEDS: Morphine 2 MG/ML Syringe IV (19:39)
== END 2023-10-28 19:52 | disposition short-term general hospital (02) ==
PROVIDERS: Emergency Provider Emergency Medicine; PCP Family Medicine; Visit Provider Emergency Medicine
DX: K57.92 Diverticulitis of intestine, part unspecified, without perforation or abscess without bleeding (principal); E11.9 Type 2 diabetes mellitus without complications; K63.0 Abscess of intestine; R10.30 Lower abdominal pain, unspecified; Z79.899 Other long term (current) drug therapy; Z87.891 Personal history of nicotine dependence
CPT/HCPCS: 74177; 80048; 81001; 85025; 96365; 96366; 96375; 96376; 99284; Q9967; A4216; J2405

== ENCOUNTER → 2023-11-15 | Outpatient (CLI) | payer MEDICARE, SELFPAY ==
[2023-11-15 15:11] LABS: Absolute Neutrophil Count 7.4 X10^3/uL (2.0-7.7); Basophil# 0.06 X10^3/uL; Basophil% 0.6 % (0-1); Eosinophil# 0.31 X10^3/uL; Eosinophils% 2.9 % (0-5); Hemoglobin 12.9 g/dL (12.0-15.0); Lymphocyte % 17.6 % (19-41); Mean Corp Hgb Conc 30.7 g/dL (32-36); Mean Corpuscular Hgb 29.5 pg (27.0-32.0); Mean Corpuscular Volume 95.9 fL (81-99); Mean Platelet Vol. 10.4 fl (6.2-12.0); Monocyte# 1.11 X10^3/uL; Monocyte% 10.3 % (0-10); NRBC Flagged by Analyzer 0 % (0-5); Neutrophil # 7.39 X10^3/uL (2.7-7.7); Neutrophil % 68.3 % (47-70); Platelet Count 303 K/mm3 (150-450); RBC Distribution Width CV 16.2 % (11.6-14.6); RBC Distribution Width SD 55.8 fl (35.1-43.9); Red Blood Count 4.38 M/mm3 (4.2-5.4); White Blood Count 10.8 K/mm3 (4.4-11.0)
[2023-11-15 15:49] LABS: ALB/GLOB Ratio 0.6 RATIO (0.9-2.4); AST(SGOT) 23 U/L (15-37); Alanine Aminotransfer ALT/SGPT 24 U/L (13-56); Albumin, Serum 2.8 g/dL (3.2-5.0); Alkaline Phosphatase 79 U/L (45-117); Anion Gap 5 (5-15); BUN 14 mg/dL (7-18); BUN/Creat Ratio 16.6 RATIO (10-20); Calcium,Total 9.4 mg/dL (8.5-10.1); Chloride 108 mmol/L (98-107); Creatinine, Serum 0.84 mg/dL (0.55-1.02); EST Glomerular Filtration Rate 70 mL/min (>60); Est Glom Filt Rate - Afr Amer 84 mL/min (>60); Globulin 4.5 g/dL (2.2-4.2); Glucose 118 mg/dL (74-106); Potassium 4.4 mmol/L (3.5-5.1); Protein, Total 7.3 g/dL (6.4-8.2); Sodium Level 139 mmol/L (136-145)
== END | disposition home or self-care (01) ==
LOC: BIMLAB 13:54
PROVIDERS: PCP Family Medicine; Referring Provider Physician Assistant; Visit Provider Physician Assistant
DX: K57.92 Diverticulitis of intestine, part unspecified, without perforation or abscess without bleeding (principal)
CPT/HCPCS: 36415; 80053; 85025

== ENCOUNTER → 2023-11-16 | Outpatient (CLI) | payer MEDICARE, SELFPAY ==
--- NOTE | 2023-11-16 12:54 | CT_ITS ---
STUDY: CT ABDOMEN AND PELVIS WITH CONTRAST REASON FOR EXAM: Female, 73 years old. Diverticular abscess RADIATION DOSAGE (If Supplied By Facility): CTDIvol = ( 15.9 ) mGy, DLP = ( 1087.15 ) mGycm TECHNIQUE: Transaxial images were obtained from the dome of the diaphragm to the symphysis pubis with oral contrast. Oral and amp; IV Redi-CAT and amp; 100mL Isovue-300 was administered. Sagittal and coronal images were reconstructed. Individualized dose optimization techniques were used for this CT. COMPARISON: 10/28/2023 FINDINGS: The visualized lung bases are unremarkable. The visualized portions of the heart are within normal limits. Normal liver. The gallbladder is contracted. There are multiple benign calcified granulomata of the spleen. Normal pancreas. Normal bilateral adrenal glands. Normal right kidney. Normal left kidney. Suspect parapelvic cysts of both kidneys. Normal visualized stomach. Normal small intestine. There are multiple colonic diverticula consistent with diverticulosis. There is a marked interval decrease in the size of the abscess posterior to the sigmoid colon and superior to the bladder and the vagina from 4.5 x 8.0 cm to 2.0 x 6.0 cm. Normal appendix. Normal abdominal aorta. Normal inferior vena cava. Normal retroperitoneum. Normal urinary bladder. No change in the 5 cm umbilical hernia containing fat. Moderate dextroscoliosis of the lumbar spine with degenerative disc disease. CT/Abdomen/Pelvis WITH Contrast IMPRESSION: Markedly improved diverticular abscess. Electronically Signed: Italo Colunga MD at 10:00 EDT ,
== END | disposition home or self-care (01) ==
LOC: CT 12:53
PROVIDERS: PCP Family Medicine; Referring Provider Physician Assistant; Visit Provider Physician Assistant
DX: K57.92 Diverticulitis of intestine, part unspecified, without perforation or abscess without bleeding (principal)
CPT/HCPCS: 74177; Q9967

== ENCOUNTER → 2024-10-08 | Outpatient (CLI) | payer MEDICARE, SELFPAY ==
[2024-10-08 18:11] LABS: ALB/GLOB Ratio 1.1 RATIO (0.9-2.4); AST(SGOT) 17 U/L (<=31); Alanine Aminotransfer ALT/SGPT 13 U/L (<=34); Albumin, Serum 3.9 g/dL (3.4-4.8); Alkaline Phosphatase 77 U/L (35-104); Anion Gap 12 (5-15); BUN 20 mg/dL (4-19); BUN/Creat Ratio 24.3 RATIO (10-20); Calcium,Total 9.9 mg/dL (7.6-11.0); Carbon Dioxide 24.8 mmol/L (21.0-32.0); Chloride 105 mmol/L (98-108); Cholesterol 128 mg/dL (<=200); EST Glomerular Filtration Rate 76 (>60); Globulin 3.6 g/dL (2.2-4.2); Glucose 99 mg/dL (70-99); High Density Lipoprotein 65 mg/dL; Low Density Lipoprotein Calc. 41 mg/dL; Potassium 4.6 mmol/L (3.3-5.1); Protein, Total 7.5 g/dL (5.9-8.4); Sodium Level 142 mmol/L (133-145); Triglycerides 112 mg/dL; Very Low Density Lipoprotein 22 mg/dL (5-40); cholesterol:hdl ratio screen 1.98
== END | disposition home or self-care (01) ==
LOC: BIMLAB 13:42
PROVIDERS: PCP Family Medicine; Referring Provider Family Medicine; Visit Provider Family Medicine
DX: E78.5 Hyperlipidemia, unspecified (principal); I10 Essential (primary) hypertension
CPT/HCPCS: 36415; 80053; 80061

== ENCOUNTER → 2024-10-14 | Outpatient (CLI) | payer MEDICARE, SELFPAY ==
--- NOTE | 2024-10-14 14:00 | BI_ITS ---
EXAM: SCRN MAMM (CAD)W/CLAUDE BILAT DATE: 10/14/2024 CLINICAL HISTORY: F, Age 74 y/o , SCREENING Patient's mother was diagnosed with breast cancer at age 75. BREAST CANCER RISK ASSESSMENT: Has not been calculated. TECHNIQUE: Bilateral screening digital breast tomosynthesis with 2D and 3D images. Computer aided detection. COMPARISON: Mammogram study dated 04/28/2023 FINDINGS: TISSUE DENSITY: The breast tissue is almost entirely fatty. Bilateral Breast Mammographic Findings: There are no suspicious masses, suspicious cluster of microcalcifications, architectural distortion or secondary signs of malignancy identified in either breast. Benign-appearing round microcalcifications are seen in both breast. A 2 mm masslike density in the superior, far posterior aspect of the right breast is noted. This has a fatty hilum and is most compatible intramammary lymph node. BI/SCRN MAMM (CAD)W/CLAUDE BILAT IMPRESSION: Right Breast: BIRADS 2 BENIGN FINDING. Left Breast: BIRADS 2 BENIGN FINDING. OVERALL FINAL ASSESSMENT: BIRADS 2 BENIGN FINDING RECOMMENDATION: Routine annual follow-up in 1 Year A letter with findings and recommendations will be mailed to the patient. Reading Location: [id number]
== END | disposition home or self-care (01) ==
LOC: OPBI 13:41
PROVIDERS: PCP Family Medicine; Referring Provider Family Medicine; Visit Provider Family Medicine
DX: Z12.31 Encounter for screening mammogram for malignant neoplasm of breast (principal)
CPT/HCPCS: 77063; 77067

== ENCOUNTER → 2025-04-21 | Outpatient (CLI) | payer MEDICARE, SELFPAY ==
[2025-04-21 17:52] LABS: Hematocrit 43.8 % (37-47); Hemoglobin 13.7 g/dL (12.0-15.0); Immature Granulocytes Count 0.060 X10^3/uL (0.0-0.0); Mean Corp Hgb Conc 31.3 g/dL (32-36); Mean Corpuscular Volume 96.1 fL (81-99); Mean Platelet Vol. 10.8 fl (6.2-12.0); NRBC Flagged by Analyzer 0 % (0-5); Platelet Count 246 K/mm3 (150-450); RBC Distribution Width CV 14.7 % (11.6-14.6); RBC Distribution Width SD 52.5 fl (35.1-43.9); Red Blood Count 4.56 M/mm3 (4.2-5.4); White Blood Count 16.4 K/mm3 (4.4-11.0)
[2025-04-21 18:23] LABS: Anion Gap 12 (5-15); BUN 29 mg/dL (4-19); BUN/Creat Ratio 32.8 RATIO (10-20); Calcium,Total 9.3 mg/dL (7.6-11.0); Carbon Dioxide 22.8 mmol/L (21.0-32.0); Chloride 105 mmol/L (98-108); Glucose 93 mg/dL (70-99); Potassium 4.7 mmol/L (3.3-5.1)
== END | disposition home or self-care (01) ==
LOC: MTLAB 14:38
PROVIDERS: PCP Family Medicine; Referring Provider Family Medicine; Visit Provider Family Medicine
DX: I10 Essential (primary) hypertension (principal); M35.3 Polymyalgia rheumatica
CPT/HCPCS: 36415; 80048; 85025